=== PATIENT | female | born 1935 | race Caucasian/White ===

== ENCOUNTER 2019-07-15 12:35 | Outpatient (CLI) | payer MEDICARE, SELFPAY ==
--- NOTE | 2019-07-15 13:08 | MR_ITS ---
WS: [id number] MRI PELVIS AND RIGHT HIP without CONTRAST. COMPARISON: None Multiplanar, multisequence imaging is performed without contrast. Moderate narrowing of the RIGHT hip joint. Mild osteophytic ridging. Increased edema in the far later al acetabulum. There is also small amount of joint fluid. No fractures. There is increased signal ove r the greater trochanters. There is linear signal through the lateral labrum highly suspicious for a tear. This is along the sup erior lateral labrum. Cyst associated with the LEFT kidney measures 4.2 x 4.7 cm. Sigmoid diverticulosis. MR/MR hip RT wo con* [id number] IMPRESSION: 1. Mild osteoarthritis at the RIGHT hip joint with changes of an superior late ral labral tear. 2. Mild bilateral trochanteric bursitis.
== END 2019-07-15 12:36 | disposition home or self-care (01) ==
LOC: RADWPI 12:42
PROVIDERS: Family Provider Nurse Practitioner Family; PCP Nurse Practitioner Family; Visit Provider Nurse Practitioner Family
DX: R26.2 Difficulty in walking, not elsewhere classified (principal); M25.551 Pain in right hip; R10.31 Right lower quadrant pain; N28.1 Cyst of kidney, acquired; K57.30 Diverticulosis of large intestine without perforation or abscess without bleeding; M16.11 Unilateral primary osteoarthritis, right hip; M70.61 Trochanteric bursitis, right hip
CPT/HCPCS: 73721

== ENCOUNTER → 2019-08-05 10:42 | Outpatient (BNVA) | payer MEDICARE, SELFPAY | PROVIDERS: Family Provider Nurse Practitioner Family; PCP Nurse Practitioner Family; Referring Provider Nurse Practitioner Family; Visit Provider Orthopaedic Surgery | DX: M25.551 Pain in right hip (principal); M16.11 Unilateral primary osteoarthritis, right hip | CPT/HCPCS: 73502 ==

== ENCOUNTER → 2019-08-11 09:31 | Outpatient (BNVA) | payer MEDICARE, SELFPAY | PROVIDERS: Family Provider Nurse Practitioner Family; PCP Nurse Practitioner Family; Referring Provider Orthopaedic Surgery; Visit Provider Anesthesiology Pain Medicine | DX: M25.551 Pain in right hip (principal) | CPT/HCPCS: 99203; 99204 ==

== ENCOUNTER → 2019-08-19 13:35 | Outpatient (BNVA) | payer MEDICARE, SELFPAY | PROVIDERS: Family Provider Nurse Practitioner Family; PCP Nurse Practitioner Family; Visit Provider Anesthesiology Pain Medicine | DX: G89.29 Other chronic pain (principal); M25.551 Pain in right hip | CPT/HCPCS: 20610; 77002; 77003; J1030; J2001; J3490 ==

== ENCOUNTER → 2019-09-03 08:36 | Outpatient (BNVA) | payer MEDICARE, SELFPAY | PROVIDERS: Family Provider Nurse Practitioner Family; PCP Nurse Practitioner Family; Visit Provider Anesthesiology Pain Medicine | DX: M16.11 Unilateral primary osteoarthritis, right hip (principal); M70.61 Trochanteric bursitis, right hip; Y93.9 Activity, unspecified | CPT/HCPCS: 99212; 99213 ==

== ENCOUNTER 2020-01-07 12:54 | Inpatient (IN) | payer MEDICARE, SELFPAY ==
[2020-01-07] VITALS (9 sets, daily range): BP systolic 118–171; BP diastolic 63–89; PULSE 61–76; RESP 17–27; TEMP 37.4–37.7; O2SAT 92–97; BMI 27.4
--- NOTE | 2020-01-07 13:20 | ECG_ITS ---
[facility] Test Date: 2020-01-07 Pat Name: Vivian Osorio Department: Room: Gender: Female Campus Administrator: : [id number] Requested By: Francesco Marshall Order Number: [id number] Reading MD: LAZARUS BOGGS Measurements Intervals [place] Rate: 69 P: 75 MA: 189 QRS: -40 QRSD: 90 T: 17 QT: 401 QTc: 432 Interpretive Statements SINUS RHYTHM WITH OCCASIONAL SUPRAVENTRICULAR PREMATURE COMPLEXES MARKED LEFT AXIS DEVIATION [QRS AXIS < -30] POSSIBLE RIGHT VENTRICULAR CONDUCTION DELAY [RSR (QR) IN V1/V2] MODERATE ST DEPRESSION [0.05+ mV ST DEPRESSION] No previous ECG available for comparison Electronically Signed On 01-08-2020 15:22:48 [address] CONSULTANT by LAZARUS BOGGS [email or web address]
--- NOTE | 2020-01-07 14:07 | PC.NURSE ---
Pt in WR. Given warm blanket for comfort, no needs at this time.
[2020-01-07 14:35] LABS: Nucleated Red Blood Cells % 0 %
[2020-01-07 14:43] LABS: Basophils % 0.5 %; Eosinophils % 0.2 %; Hematocrit 43.4 % (37.0-47.0); Lymphocytes # 0.7 10^3/uL (0.8-4.8); Lymphocytes % 15.8 %; Mean Corpuscular HGB Conc 32.3 g/dL (30.0-36.0); Mean Corpuscular Hemoglobin 28.6 pg (28.0-34.0); Mean Corpuscular Volume 88.8 fL (81-99); Monocytes # 0.3 10^3/uL (0.2-0.9); Monocytes % 7.2 %; Neutrophils # 3.35 10^3/uL (1.8-7.7); Neutrophils % 75.8 %; Platelet Count 145 10^3/cmm (130-400); Red Blood Count 4.89 10^6/uL (4.1-5.3); Red Cell Distribution Width 14.4 % (12.1-15.1); White Blood Count 4.4 10^3/uL (4.0-10.0)
[2020-01-07 15:18] LABS: Slide Review Slide Review Perform
--- NOTE | 2020-01-07 16:13 | PC.NURSE ---
Pt was moved to VF d/t pt falling asleep in the wheelchair. Pt was able to transfer herself to a recliner. Resting with pull cord in reach.
--- NOTE | 2020-01-07 16:28 | PC.NURSE ---
Pt placed in room 12 and placed on monitor and 2LNC.
--- NOTE | 2020-01-07 16:39 | CTR_ITS ---
PROCEDURE INFORMATION: Exam: CT Angiography Chest With Contrast Exam date and time: 01/07/2020 6:41 PM Age: 84 years old Clinical indication: Shortness of breath; Additional info: Dyspnea TECHNIQUE: Imaging protocol: Computed tomographic angiography of the chest with intravenous contrast. 3D rendering (Not supervised by radiologist): MIP and/or 3D reconstructed images were created by the technologist. Radiation optimization: All CT scans at this facility use at least one of these dose optimization techniques: automated exposure control; mA and/or kV adjustment per patient size (includes targeted exams where dose is matched to clinical indication); or iterative reconstruction. Contrast material: VISI 320; Contrast volume: 64 ml; Contrast route: INTRAVENOUS (IV); COMPARISON: CR XR chest 1V portable [id number] 01/07/2020 5:17 PM RADIATION DOSE METRICS: Total DLP (mGy-cm): 598.97 FINDINGS: Pulmonary arteries: No visible evidence of pulmonary embolism/pulmonary arterial thrombus. Aorta: Minimal fusiform aneurysmal dilatation of the ascending thoracic aorta at 41 mm. No intimal flap or dissection. Mild arterial sclerotic disease. Lungs: Rare focus of patchy ground-glass interstitial lung disease which could reflect active interstitial pneumonitis. Minimal dependent atelectasis in the right lung base. Pleural space: Unremarkable. No pneumothorax. No pleural effusion. Heart: Coronary artery disease. Cardiomegaly. Left ventricular prominence. No visible pericardial effusion. Mediastinal space: Moderate size hiatal hernia. Patulous esophagus with the potential for achalasia. Lymph nodes: No visible evidence of active mediastinal or hilar lymphadenopathy. Liver: Diffuse fatty infiltration liver. Gallbladder and bile ducts: Status post cholecystectomy. Bones/joints: Age-appropriate degenerative disease of the spine. No visible acute osseous abnormality. Mild scoliotic curvature of the spine. Soft tissues: Unremarkable. Other findings: Motion artifact. CT/CT angio chest PE protcl [id number] IMPRESSION: 1. No visible evidence of pulmonary embolism/pulmonary arterial thrombus. 2. Minimal fusiform aneurysmal dilatation of the ascending thoracic aorta without intimal flap or dissection. 3. Rare focus of patchy ground-glass interstitial lung disease which could reflect low-grade active interstitial pneumonitis. 4. Coronary artery disease. 5. Cardiomegaly. 6. Other nonurgent, nonemergent, chronic, and age related findings as detailed in text above. Radiation Dose CTDIVOL = (mGy): DLP = 598.97 (mGy-cm)
--- NOTE | 2020-01-07 16:52 | W.ED.WEAKNES ---
Documented by User: Francesco Ibarra DO 01/08/20 06:32 HPI - Weakness General: Chief complaint: Extremity Problem,Nontraumatic Stated complaint: WEAKNESS / LEG CRAMPS Time Seen by Provider: 01/07/20 16:24 History of Present Illness: HPI Narrative: 84 yo female present with complaints of not feeling well. She is very vaugue as to her symtpoms. SHe does seem somewhat dyspnic in conversation. In trieage she had sat as low as 88% on room air. Oxygen turned off she desats to the low 90s upper 80s while lying in bed. She has had some nausea no vomiting denies diarrhea generalized weakness myalgia and flulike symptoms as well. MD Complaint: generalized weakness Associated symptoms: Denies chest pain, chills, melena, dysuria, fever(s), nausea or vomiting Review of Systems Const: Denies: fever(s), chills, body aches, change in appetite, fatigue or malaise ENMT: Denies: throat pain, ear or mastoid pain, nasal discharge or nasal congestion Card: Denies: chest pain, edema, dyspnea on exertion or orthopnea Resp: Denies: dyspnea, productive cough or non-productive cough GI: Denies: abdominal pain, nausea, vomiting, hematemesis, coffee ground emesis, diarrhea, constipation, bloating, hematochezia or melena : Denies: flank pain, difficulty voiding, dysuria, urinary frequency or urinary urgency Skin/Breast: Denies: rash or pruritus PFSH ED PFSH: Medical History (Updated 01/08/20 @ 06:32 by Francesco Ibarra DO) Chronic right hip pain Dementia Depression Hip osteoarthritis Hypertension Hypothyroidism Opioid contract exists RLS (restless legs syndrome) Vitamin D deficiency Surgical History (Updated 01/08/20 @ 00:23 by Elma Reid MD) History of hysterectomy Family History Other Cancer Diabetes Hypertension Social History Smoking and tobacco status: never smoked Alcohol intake: never Physical Exam Const: COMMON NORMALS: no acute distress GENERAL APPEARANCE: cooperative and comfortable HENMT: COMMON NORMALS: normocephalic, atraumatic and hearing grossly normal bilaterally HEAD & SCALP: normocephalic and atraumatic Neck/C-Spine: COMMON NORMALS: no JVD Resp: AUSCULTATION: rhonchi and wheezes Cardio: COMMON NORMALS: no JVD, regular rate, regular rhythm and No murmurs present (Cardio) RATE: regular rate RHYTHM: regular rhythm GI: COMMON NORMALS: Soft to palpation and No hepatosplenomegaly present AUSCULTATION: Yes normoactive bowel sounds PALPATION: Yes Soft to palpation, No Tenderness to palpation present (GI), No Guarding due to palpation present (GI) and Yes No hepatosplenomegaly present Extremity: COMMON NORMALS: normal to inspection, capillary refill normal, no clubbing, cyanosis or edema, no calf tenderness and no pedal edema Skin: COMMON NORMALS: no rashes or lesions noted GENERAL SKIN EXAM: no rashes or lesions noted Course Vital Signs: Vital signs: Vital Signs Temperature 97.9 F 01/08/20 04:00 Pulse Rate 52 L 01/08/20 04:00 Respiratory Rate 17 01/08/20 04:00 Blood Pressure 133/63 01/08/20 04:00 Pulse Oximetry 94 01/08/20 04:00 MDM - Weakness MDM Narrative: Medical decision making narrative: Turned over to Dr. Wheat at change of shift please see her notes for final diagnosis and disposition Lab Data: Labs: Lab Results 01/07/20 01/07/20 01/07/20 Range/Units 13:15 15:45 15:45 WBC 4.4 (4.0-10.0) 10^3/ uL RBC 4.89 (4.1-5.3) 10^6/u L Hgb 14.0 (11.5-15.3) g/dL Hct 43.4 (37.0-47.0) % MCV 88.8 (81-99) fL MCH 28.6 (28.0-34.0) pg MCHC 32.3 (30.0-36.0) g/dL RDW 14.4 (12.1-15.1) % Plt Count 145 (130-400) 10^3/c mm MPV 13.0 H (7.4-10.4) fL Neut % (Auto) 75.8 % Lymph % (Auto) 15.8 % [place] % (Auto) 7.2 % Eos % (Auto) 0.2 % Baso % (Auto) 0.5 % Neut # (Auto) 3.35 (1.8-7.7) 10^3/u L Lymph # (Auto) 0.7 L (0.8-4.8) 10^3/u L [place] # (Auto) 0.3 (0.2-0.9) 10^3/u L Eos # (Auto) 0.0 (0.0-0.8) 10^3/u L Baso # (Auto) 0.0 (0.0-0.1) 10^3/u L Nucleated RBC % (a uto) 0 % Nucleated RBCs # 0.0 /100WBC ESR 44 H (0-15) mm/hr D-Dimer (0-0.59) ug/mIFE U Sodium 135 L (136-145) mmol/L Potassium 3.7 (3.5-5.1) mmol/L Chloride 97 L (98-107) mmol/L Carbon Dioxide 23 (22-29) mmol/L Anion Gap 18.7 (5-19) BUN 39 H (8-23) mg/dL Creatinine 1.3 H (0.5-0.9) mg/dL GFR Calculation Not Reportable Glucose 131 H (65-115) mg/dL Calculated Osmolal ity 291 (285-295) mOsm/k g Calcium 8.9 (8.5-10.5) mg/dL Magnesium 2.0 (1.7-2.3) mg/dL Total Bilirubin 0.3 (0.15-1.2) mg/dL AST 30 (0-32) U/L ALT 21 (0-33) U/L Alkaline Phosphata se 64 (35-105) IU/L C-Reactive Protein (0.0-4.9) mg/L Total Protein 7.4 (6.6-8.7) g/dL Albumin 4.2 (3.5-5.2) g/dL Globulin 3.2 (1.3-4.6) g/dL Procalcitonin (0-0.5) ng/mL SARS-CoV-2 Ag (Rap id) (Negative) 01/07/20 01/07/20 01/07/20 Range/Units 15:45 15:45 17:30 WBC (4.0-10.0) 10^3/ uL RBC (4.1-5.3) 10^6/u L Hgb (11.5-15.3) g/dL Hct (37.0-47.0) % MCV (81-99) fL MCH (28.0-34.0) pg MCHC (30.0-36.0) g/dL RDW (12.1-15.1) % Plt Count (130-400) 10^3/c mm MPV (7.4-10.4) fL Neut % (Auto) % Lymph % (Auto) % [place] % (Auto) % Eos % (Auto) % Baso % (Auto) % Neut # (Auto) (1.8-7.7) 10^3/u L Lymph # (Auto) (0.8-4.8) 10^3/u L [place] # (Auto) (0.2-0.9) 10^3/u L Eos # (Auto) (0.0-0.8) 10^3/u L Baso # (Auto) (0.0-0.1) 10^3/u L Nucleated RBC % (a uto) % Nucleated RBCs # /100WBC ESR (0-15) mm/hr D-Dimer 0.95 H (0-0.59) ug/mIFE U Sodium (136-145) mmol/L Potassium (3.5-5.1) mmol/L Chloride (98-107) mmol/L Carbon Dioxide (22-29) mmol/L Anion Gap (5-19) BUN (8-23) mg/dL Creatinine (0.5-0.9) mg/dL GFR Calculation Glucose (65-115) mg/dL Calculated Osmolal ity (285-295) mOsm/k g Calcium (8.5-10.5) mg/dL Magnesium (1.7-2.3) mg/dL Total Bilirubin (0.15-1.2) mg/dL AST (0-32) U/L ALT (0-33) U/L Alkaline Phosphata se (35-105) IU/L C-Reactive Protein 52.0 H (0.0-4.9) mg/L Total Protein (6.6-8.7) g/dL Albumin (3.5-5.2) g/dL Globulin (1.3-4.6) g/dL Procalcitonin 0.15 (0-0.5) ng/mL SARS-CoV-2 Ag (Rap id) Positive H (Negative) Discharge Plan Discharge Patient Disposition: Admitted As Inpatient Admit Provider: Elma Reid Clinical Impression: Pneumonia due to 2019-nCoV Condition: Stable Coding Level of Care Code ED Lead Shop Operator for Chg Fwd Exam Comprehensive Documented by User: Belen Wheat MD 01/08/20 05:22 HPI - Weakness General: Chief complaint: Extremity Problem,Nontraumatic Stated complaint: WEAKNESS / LEG CRAMPS Time Seen by Provider: 01/07/20 16:24 PFSH ED PFSH: Medical History (Updated 01/08/20 @ 06:32 by Francesco Ibarra DO) Chronic right hip pain Dementia Depression Hip osteoarthritis Hypertension Hypothyroidism Opioid contract exists RLS (restless legs syndrome) Vitamin D deficiency Surgical History (Updated 01/08/20 @ 00:23 by Elma Reid MD) History of hysterectomy Family History Other Cancer Diabetes Hypertension Social History Smoking and tobacco status: never smoked Alcohol intake: never Course ED course: I assumed care of this patient at shift change. She remained fairly stable while in the ED. CT did not show any PEs. She does have Covid pneumonia. She is requiring oxygen. I spoke to her daughter by phone. Her daughter lives in the [place] area. She thinks the patient started having symptoms over the weekend but she is not sure. The patient has dementia and is not able to tell me anymore. Her daughter does not feel that she can manage at home because of her dementia. I will admit her to the hospital for further management. She got remdesivir and Decadron in the ER. Vital Signs: Vital signs: Vital Signs Temperature 97.9 F 01/08/20 04:00 Pulse Rate 52 L 01/08/20 04:00 Respiratory Rate 17 01/08/20 04:00 Blood Pressure 133/63 01/08/20 04:00 Pulse Oximetry 94 01/08/20 04:00 MDM - Weakness Lab Data: Labs: Lab Results 01/07/20 01/07/20 01/07/20 Range/Units 13:15 15:45 15:45 WBC 4.4 (4.0-10.0) 10^3/ uL RBC 4.89 (4.1-5.3) 10^6/u L Hgb 14.0 (11.5-15.3) g/dL Hct 43.4 (37.0-47.0) % MCV 88.8 (81-99) fL MCH 28.6 (28.0-34.0) pg MCHC 32.3 (30.0-36.0) g/dL RDW 14.4 (12.1-15.1) % Plt Count 145 (130-400) 10^3/c mm MPV 13.0 H (7.4-10.4) fL Neut % (Auto) 75.8 % Lymph % (Auto) 15.8 % [place] % (Auto) 7.2 % Eos % (Auto) 0.2 % Baso % (Auto) 0.5 % Neut # (Auto) 3.35 (1.8-7.7) 10^3/u L Lymph # (Auto) 0.7 L (0.8-4.8) 10^3/u L [place] # (Auto) 0.3 (0.2-0.9) 10^3/u L Eos # (Auto) 0.0 (0.0-0.8) 10^3/u L Baso # (Auto) 0.0 (0.0-0.1) 10^3/u L Nucleated RBC % (a uto) 0 % Nucleated RBCs # 0.0 /100WBC ESR 44 H (0-15) mm/hr D-Dimer (0-0.59) ug/mIFE U Sodium 135 L (136-145) mmol/L Potassium 3.7 (3.5-5.1) mmol/L Chloride 97 L (98-107) mmol/L Carbon Dioxide 23 (22-29) mmol/L Anion Gap 18.7 (5-19) BUN 39 H (8-23) mg/dL Creatinine 1.3 H (0.5-0.9) mg/dL GFR Calculation Not Reportable Glucose 131 H (65-115) mg/dL Calculated Osmolal ity 291 (285-295) mOsm/k g Calcium 8.9 (8.5-10.5) mg/dL Magnesium 2.0 (1.7-2.3) mg/dL Total Bilirubin 0.3 (0.15-1.2) mg/dL AST 30 (0-32) U/L ALT 21 (0-33) U/L Alkaline Phosphata se 64 (35-105) IU/L C-Reactive Protein (0.0-4.9) mg/L Total Protein 7.4 (6.6-8.7) g/dL Albumin 4.2 (3.5-5.2) g/dL Globulin 3.2 (1.3-4.6) g/dL Procalcitonin (0-0.5) ng/mL SARS-CoV-2 Ag (Rap id) (Negative) 01/07/20 01/07/20 01/07/20 Range/Units 15:45 15:45 17:30 WBC (4.0-10.0) 10^3/ uL RBC (4.1-5.3) 10^6/u L Hgb (11.5-15.3) g/dL Hct (37.0-47.0) % MCV (81-99) fL MCH (28.0-34.0) pg MCHC (30.0-36.0) g/dL RDW (12.1-15.1) % Plt Count (130-400) 10^3/c mm MPV (7.4-10.4) fL Neut % (Auto) % Lymph % (Auto) % [place] % (Auto) % Eos % (Auto) % Baso % (Auto) % Neut # (Auto) (1.8-7.7) 10^3/u L Lymph # (Auto) (0.8-4.8) 10^3/u L [place] # (Auto) (0.2-0.9) 10^3/u L Eos # (Auto) (0.0-0.8) 10^3/u L Baso # (Auto) (0.0-0.1) 10^3/u L Nucleated RBC % (a uto) % Nucleated RBCs # /100WBC ESR (0-15) mm/hr D-Dimer 0.95 H (0-0.59) ug/mIFE U Sodium (136-145) mmol/L Potassium (3.5-5.1) mmol/L Chloride (98-107) mmol/L Carbon Dioxide (22-29) mmol/L Anion Gap (5-19) BUN (8-23) mg/dL Creatinine (0.5-0.9) mg/dL GFR Calculation Glucose (65-115) mg/dL Calculated Osmolal ity (285-295) mOsm/k g Calcium (8.5-10.5) mg/dL Magnesium (1.7-2.3) mg/dL Total Bilirubin (0.15-1.2) mg/dL AST (0-32) U/L ALT (0-33) U/L Alkaline Phosphata se (35-105) IU/L C-Reactive Protein 52.0 H (0.0-4.9) mg/L Total Protein (6.6-8.7) g/dL Albumin (3.5-5.2) g/dL Globulin (1.3-4.6) g/dL Procalcitonin 0.15 (0-0.5) ng/mL SARS-CoV-2 Ag (Rap id) Positive H (Negative) Discharge Plan Discharge Patient Disposition: Admitted As Inpatient Admit Provider: Elma Reid Clinical Impression: Pneumonia due to 2019-nCoV Condition: Stable Coding Level of Care Code ED Lead Shop Operator for g Fwd Exam Comprehensive
[2020-01-07 16:55] LABS: Erythrocyte Sedimentation Rate 44 mm/hr (0-15)
[2020-01-07 16:59] LABS: D Dimer 0.95 ug/mIFEU (0-0.59)
--- NOTE | 2020-01-07 17:10 | XRR_ITS ---
PROCEDURE INFORMATION: Exam: XR Chest, 1 View Exam date and time: 01/07/2020 5:12 PM Age: 84 years old Clinical indication: Other: Weakness; Additional info: Dyspnea/cough TECHNIQUE: Imaging protocol: XR of the chest Views: 1 view. COMPARISON: No relevant prior studies available. FINDINGS: Lungs: Unremarkable. No consolidation. Pleural space: Unremarkable. No pleural effusion. No pneumothorax. Heart/Mediastinum: Unremarkable. No cardiomegaly. Bones/joints: Unremarkable. XR/XR chest 1V portable [id number] IMPRESSION: No acute findings.
[2020-01-07 17:30] LABS: Procalcitonin 0.15 ng/mL (0-0.5)
[2020-01-07 17:54] LABS: Alanine Aminotransferase 21 U/L (0-33); Albumin Level 4.2 g/dL (3.5-5.2); Alkaline Phosphatase 64 IU/L (35-105); Anion Gap 18.7 (5-19); Aspartate Amino Transferase 30 U/L (0-32); Blood Urea Nitrogen 39 mg/dL (8-23); Calcium 8.9 mg/dL (8.5-10.5); Carbon Dioxide 23 mmol/L (22-29); Chloride 97 mmol/L (98-107); Globulin 3.2 g/dL (1.3-4.6); Glucose 131 mg/dL (65-115); Osmolality Calculated 291 mOsm/kg (285-295); Potassium 3.7 mmol/L (3.5-5.1); Sodium 135 mmol/L (136-145); Total Bilirubin 0.3 mg/dL (0.15-1.2); Total Protein 7.4 g/dL (6.6-8.7)
[2020-01-07 18:08] LABS: SARS Covid-2 Antigen Positive (Negative)
[2020-01-07] MEDS: iodixanol 320 mg/mL 100mL Btl IV (19:21)
[2020-01-07] MEDS: ropinirole 0.25 mg Tablet PO (20:43)
[2020-01-07] MEDS: dexamethasone 4 mg/mL INJ 6 MG IVP (21:56)
[2020-01-08] VITALS (10 sets, daily range): BP systolic 115–145; BP diastolic 63–74; PULSE 51–70; RESP 17–18; TEMP 36.5–37.1; O2SAT 92–96
--- NOTE | 2020-01-08 00:20 | PM.HP ---
Providers/Chief Complaint Admitting Physician: Elma Reid MD Primary Care Provider: Esem Vo Chief Complaint: WEAKNESS / LEG CRAMPS History of Present Illness Vivian Osorio is a 84 year old female with PMH hypothyroidism and HTN who presnted to the ER earlier today with co leg cramps, fever and generalized feeling of being unwell. She was noted to be tachypneic and had a reportedly new 02 requirement at 2lpm with RA saturation in the mid 80s. ROS dry cough+. Denies chest pain, dypnea or palpitaions. Diagnostics notable for covid antigen positive, CTA without PE but evidence of mild GGOs which may represent viral pneumonitis. Procal negative, no gross consolidation. Review of Systems General: Reports: 10 or more systems reviewed and unremarkable except in HPI and below Const: Reports: fever(s), chills and body aches Eyes: Denies: change in vision, blurry vision or photophobia ENMT: Reports: hoarseness; Denies: throat pain, enlarged tonsils, odynophagia or nasal congestion Card: Denies: chest pain, palpitations, irregular heart rhythm, edema, swelling of feet/ankles, lightheadedness, pre-syncope, dyspnea on exertion or orthopnea Resp: Denies: dyspnea, productive cough, non-productive cough, wheezing, stridor, pain on inspiration, change in phlegm color, hemoptysis or chest congestion GI: Denies: abdominal pain, nausea, vomiting, hematemesis, coffee ground emesis, dysphagia, heartburn, diarrhea, constipation, GI cramping, change in stool character, hematochezia or melena : Denies: flank pain, difficulty voiding, dysuria, urinary frequency, urinary urgency, urinary hesitancy or hematuria Musc: Denies: neck pain, back pain, extremity pain, joint swelling, joint warmth or deformity Neuro: Denies: headache(s), numbness in extremities, weakness in extremities, sensory changes, difficulty walking, frequent falls, dizziness, vertigo, behavioral changes, Slurred speech present or seizure-like activity Psych: Denies: anxiety, depression, suicidal ideation or homicidal ideation Endo: Denies: polyuria, polydipsia, tired all the time, cold intolerance or hot flashes Prudencio/Lymph: Denies: easy bruising or easy bleeding Medications/Allergies Home Medications Medication Instructions Recorded Confirmed Last Taken Type cholecalciferol (vitamin D3) 25 25 mcg PO DAILY 08/05/19 01/07/20 Unknown History mcg (1,000 unit) capsule gabapentin 600 mg tablet 600 mg PO DAILY 08/05/19 01/07/20 Unknown History hydrochlorothiazide 12.5 mg tablet 12.5 mg PO DAILY 08/05/19 01/07/20 Unknown History levothyroxine 25 mcg capsule 25 mcg PO DAILY 08/05/19 01/07/20 Unknown History nystatin 100,000 unit/gram topical 1 applic TOPICAL BID 08/05/19 01/07/20 Unknown History cream omeprazole 20 mg capsule,delayed 20 mg PO DAILY 08/05/19 01/07/20 Unknown History release lisinopril 10 mg PO DAILY 01/07/20 01/07/20 Unknown History nebivolol [Bystolic] 5 mg PO DAILY 01/07/20 01/07/20 Unknown History Allergies Allergy/AdvReac Type Severity Reaction Status Date / Time naproxen [From Naprosyn] Allergy Severe ALGY-Swell Verified 09/03/19 09:25 Lip/Tongue/Throat PFSH Acute PFSH: Medical History (Updated 01/08/20 @ 00:24 by Elma Reid MD) Chronic right hip pain Dementia Depression Hip osteoarthritis Hypertension Hypothyroidism Opioid contract exists RLS (restless legs syndrome) Vitamin D deficiency Surgical History (Updated 01/08/20 @ 00:23 by Elma Reid MD) History of hysterectomy Family History Other Cancer Diabetes Hypertension Social History Smoking and tobacco status: never smoked Alcohol intake: never Vitals/I&O/Wt Last Vital Signs Temp 99.3 F 01/07/20 23:30 Pulse 61 01/07/20 23:30 Resp 24 H 01/07/20 23:30 BP 147/89 01/07/20 23:30 Pulse Ox 94 01/07/20 23:30 Weight last 48 hrs Weight 74.843 kg Physical Exam Const: COMMON NORMALS: no acute distress, average body habitus, patient oriented x3, alert and well nourished HENMT: COMMON NORMALS: normocephalic and atraumatic HEAD & SCALP: normocephalic and atraumatic Eye: COMMON NORMALS: Equal, round and reactive pupils present, EOMs intact bilaterally, conjunctivae normal and no scleral icterus CONJUNCTIVA: Yes conjunctivae normal PUPIL: Yes Equal, round and reactive pupils present Neck/C-Spine: COMMON NORMALS: no JVD Resp: COMMON NORMALS: normal respiratory effort, No retractions, No use of accessory muscles, clear to auscultation bilaterally and percussion normal AUSCULTATION: clear to auscultation bilaterally PERCUSSION: percussion normal Cardio: COMMON NORMALS: no JVD, regular rate, regular rhythm, S1 normal heart sound present, S2 normal heart sound present, No gallops present (Cardio), No clicks present (Cardio), No murmurs present (Cardio), No rub (Cardio) and Peripheral pulses 2+ throughout RATE: regular rate RHYTHM: regular rhythm HEART SOUNDS: S1 normal heart sound present and S2 normal heart sound present PERIPHERAL PULSES: Peripheral pulses 2+ throughout GI: COMMON NORMALS: Normal to inspection, nondistended, normoactive bowel sounds present, Soft to palpation, non-tender, No hepatosplenomegaly present, no masses and no bruits PALPATION: Yes Soft to palpation and Yes No hepatosplenomegaly present Extremity: COMMON NORMALS: normal to inspection, full ROM, capillary refill normal, no joint enlargement, no clubbing, cyanosis or edema, no calf tenderness and no pedal edema Neuro: COMMON NORMALS: patient oriented x3, CN's II-XII intact bilaterally, moves all extremities, no focal motor deficits, no sensory deficits noted, deep tendon reflexes 2+ bilaterally and gait normal SENSORIUM/ORIENTATION: Yes alert Psych: COMMON NORMALS: mental status grossly normal, Normal thought process present, cooperative, normal affect, speech normal, activity/motor behavior normal, denies hallucinations, denies homicidal ideation and denies suicidal ideation SPEECH: Yes normal speech THOUGHT PROCESS: Normal thought process present Skin: COMMON NORMALS: no rashes or lesions noted, no wounds, turgor normal, no jaundice, no petechiae and no mottling GENERAL SKIN EXAM: no rashes or lesions noted and turgor normal Data : 01/07/20 13:15 01/07/20 15:45 A&P Assessment and plan (1) Pneumonia due to 2019-nCoV: Admit to med/surg CTA without PE, shows B/L GGOs likely related to pneumonitis Start Remdisivir, dexamethasone 6mg IVP q24h Vit C 500 BID, ZInc gluconate Procal negative, hold off on abx for now supplemental 02 to keep saturation >92% Check BNP, baseline troponin to r/o alternate etiologies, clinically appears to be euvolemic, no baseline echo available EKG without acute ST-T wave changes continue levothyroxine, HCTZ at home doing. Hold lisinopril given cr 1.3, unknown last baseline Dvt ppx: lovenox Full code Status: Acute Attestations Medical Necessity Statement*: >2midnight anticipated for management of COVID 19 pneumonia with hypoxic respiratory failure Coding Level of Care Code Acute Transformation Specialist for [facility] Fwd Diagnoses Pneumonia due to 2018-nCoV U07.1; J12.89
[2020-01-08] MEDS: enoxaparin 40 mg/0.4 mL Syringe SUBCUT (00:49)
[2020-01-08 01:42] LABS: D Dimer 1.13 ug/mIFEU (0-0.59)
[2020-01-08 01:45] LABS: Alanine Aminotransferase 21 U/L (0-33); Albumin Level 3.7 g/dL (3.5-5.2); Alkaline Phosphatase 57 IU/L (35-105); Anion Gap 16.3 (5-19); Aspartate Amino Transferase 32 U/L (0-32); Blood Urea Nitrogen 30 mg/dL (8-23); Calcium 8.7 mg/dL (8.5-10.5); Carbon Dioxide 24 mmol/L (22-29); Chloride 100 mmol/L (98-107); Globulin 3.1 g/dL (1.3-4.6); Glucose 152 mg/dL (65-115); Osmolality Calculated 293 mOsm/kg (285-295); Potassium 3.3 mmol/L (3.5-5.1); Sodium 137 mmol/L (136-145); Total Bilirubin 0.3 mg/dL (0.15-1.2); Total Protein 6.8 g/dL (6.6-8.7)
[2020-01-08 01:48] LABS: Troponin T (5th) Once 34 ng/L (0-10)
[2020-01-08 01:57] LABS: C Reactive Protein 45.5 mg/L (0.0-4.9); Lactate Dehydrogenase 223 U/L (135-214); NT Pro B Type Natriuretic Pept 583 pg/mL (0-450)
[2020-01-08] MEDS: ascorbic acid 500 mg Tablet PO ×2 (07:44→17:31)
[2020-01-08] MEDS: gabapentin 300 mg Capsule 600 MG PO (07:45)
[2020-01-08] MEDS: levothyroxine 25 mcg Tablet PO (07:46)
[2020-01-08] MEDS: hydroCHLOROthiazide 25 mg Tablet 12.5 MG PO (07:46)
[2020-01-08] MEDS: zinc gluconate 50 mg Tablet PO (07:46)
[2020-01-08] MEDS: pantoprazole DR 40 mg Tablet PO (07:47)
[2020-01-08] MEDS: nystatin cream 30 gm 1 APPLIC TOPICAL ×2 (09:06→17:20)
[2020-01-08 09:25] LABS: Glucose Point of Care 136 mg/dL (70-110)
[2020-01-08] MEDS: potassium chloride ER 20 mEq Tablet PO (09:56)
[2020-01-08 12:57] LABS: Glucose Point of Care 126 mg/dL (70-110)
--- NOTE | 2020-01-08 13:23 | P.PN_ITS ---
Subjective Subjective: Interval history: This morning patient is on 2 L nasal cannula, alert oriented x2, having episodes of some confusion according to nursing staff, answers most questions appropriately, still feeling fatigued, short of breath, but overall doing better Vitals/I&O/Wt Last Vital Signs Temp 98.7 F 01/08/20 11:31 Pulse 51 L 01/08/20 11:31 Resp 18 01/08/20 11:31 BP 139/72 01/08/20 11:31 Pulse Ox 93 01/08/20 11:31 01/07/20 01/08/20 01/08/20 22:59 06:59 14:59 Intake Total 360 / 360 Output Total 650 / 650 Balance -650 / -650 360 / 360 Weight last 48 hrs Weight 74.843 kg Physical Exam Const: COMMON NORMALS: no acute distress ORIENTATION/CONSCIOUSNESS: Yes awake, Yes oriented to person and Yes oriented to place; not oriented to time HENMT: COMMON NORMALS: normocephalic HEAD & SCALP: normocephalic Neck/C-Spine: COMMON NORMALS: no JVD Resp: COMMON NORMALS: normal respiratory effort, No retractions, No use of accessory muscles and clear to auscultation bilaterally AUSCULTATION: clear to auscultation bilaterally Cardio: COMMON NORMALS: no JVD, regular rate, regular rhythm, S1 normal heart sound present and S2 normal heart sound present RATE: regular rate RHYTHM: regular rhythm HEART SOUNDS: S1 normal heart sound present and S2 normal heart sound present GI: COMMON NORMALS: Normal to inspection, nondistended, normoactive bowel sounds present, Soft to palpation, non-tender, No hepatosplenomegaly present, no masses and no bruits PALPATION: Yes Soft to palpation and Yes No hepatosplenomegaly present Extremity: COMMON NORMALS: capillary refill normal, no clubbing, cyanosis or edema, no calf tenderness and no pedal edema Neuro: SENSORIUM/ORIENTATION: Yes oriented to person, Yes oriented to place and No oriented to time Psych: COMMON NORMALS: mental status grossly normal Data : 01/07/20 13:15 01/08/20 01:16 A&P Assessment and plan (1) Pneumonia due to 2019-nCoV: Admit to med/surg CTA without PE, shows B/L GGOs likely related to pneumonitis Remdisivir, dexamethasone 6mg IVP q24h Vit C 500 BID, ZInc gluconate Procal negative, hold off on abx for now supplemental 02 to keep saturation >92% BNP 583, cardiac echocardiogram ordered EKG without acute ST-T wave changes continue levothyroxine, HCTZ at home doing. Hold lisinopril given cr 1.0, unknown last baseline Dvt ppx: lovenox Full code Status: Acute Additional A&P Information Plan for today, wean oxygen as tolerated, continue aggressive pulmonary toilet, up out of bed, Attestations Medical Necessity Statement*: Patient requires hospitalization due to pn eumonia secondary to COVID-19 Coding Level of Care Code Acute Head Of Integrated Media for [facility] Fwd Diagnoses Pneumonia due to 2019-nCoV U07.1; J12.89
[2020-01-08] MEDS: dexamethasone 4 mg/mL INJ 6 MG IVP (15:29)
[2020-01-08] MEDS: acetaminophen 325 mg Tablet 650 MG PO (15:36)
[2020-01-08 17:14] LABS: Glucose Point of Care 119 mg/dL (70-110)
[2020-01-08 20:39] LABS: Glucose Point of Care 139 mg/dL (70-110)
[2020-01-09] VITALS (9 sets, daily range): BP systolic 98–167; BP diastolic 62–81; PULSE 52–68; RESP 16–18; TEMP 35.6–37.2; O2SAT 92–96
[2020-01-09] MEDS: enoxaparin 40 mg/0.4 mL Syringe SUBCUT (01:16)
[2020-01-09 06:05] LABS: Hematocrit 45.7 % (37.0-47.0); Hemoglobin 14.7 g/dL (11.5-15.3); Lymphocytes % 15.9 %; Mean Corpuscular HGB Conc 32.2 g/dL (30.0-36.0); Mean Corpuscular Hemoglobin 28.7 pg (28.0-34.0); Mean Corpuscular Volume 89.3 fL (81-99); Mean Platelet Volume 13.2 fL (7.4-10.4); Monocytes # 0.5 10^3/uL (0.2-0.9); Monocytes % 8.1 %; Neutrophils # 4.83 10^3/uL (1.8-7.7); Neutrophils % 75.4 %; Nucleated Red Blood Cells % 0 %; Platelet Count 163 10^3/cmm (130-400); Red Blood Count 5.12 10^6/uL (4.1-5.3); Red Cell Distribution Width 13.9 % (12.1-15.1); White Blood Count 6.4 10^3/uL (4.0-10.0)
--- NOTE | 2020-01-09 06:26 | NUR.SHIFT ---
Patient through out the night was restless, otherwise pleasant.
[2020-01-09 06:34] LABS: INR 1.07 (0.8-1.2)
[2020-01-09 06:36] LABS: D Dimer 0.87 ug/mIFEU (0-0.59)
[2020-01-09 06:44] LABS: Glucose Point of Care 127 mg/dL (70-110)
[2020-01-09 06:59] LABS: NT Pro B Type Natriuretic Pept 621 pg/mL (0-450); Procalcitonin 0.11 ng/mL (0-0.5)
--- NOTE | 2020-01-09 07:00 | XR_ITS ---
WS: [id number] PORTABLE CHEST HISTORY: sob COMPARISON: 01/07/2020 Mild pulmonary hyperexpansion. Changes of mild chronic emphysema. No pleural effusion or pneumothorax . Cardiac size: Moderately enlarged cardiac silhouette. Mediastinum/Aorta: Mild atherosclerosis aorta. Diffuse osteopenia. XR/XR chest 1V portable [id number] IMPRESSION: Chronic emphysema with no pneumonia.
[2020-01-09 07:11] LABS: Alanine Aminotransferase 27 U/L (0-33); Albumin Level 3.6 g/dL (3.5-5.2); Alkaline Phosphatase 55 IU/L (35-105); Anion Gap 19.4 (5-19); Aspartate Amino Transferase 41 U/L (0-32); Blood Urea Nitrogen 31 mg/dL (8-23); C Reactive Protein 32.5 mg/L (0.0-4.9); Calcium 9.1 mg/dL (8.5-10.5); Carbon Dioxide 22 mmol/L (22-29); Chloride 98 mmol/L (98-107); Globulin 3.1 g/dL (1.3-4.6); Glucose 137 mg/dL (65-115); Osmolality Calculated 291 mOsm/kg (285-295); Phosphorus 2.9 mg/dL (2.5-4.5); Potassium 3.4 mmol/L (3.5-5.1); Sodium 136 mmol/L (136-145); Total Bilirubin 0.3 mg/dL (0.15-1.2); Total Protein 6.7 g/dL (6.6-8.7)
[2020-01-09] MEDS: pantoprazole DR 40 mg Tablet PO (07:36)
[2020-01-09] MEDS: zinc gluconate 50 mg Tablet PO (07:36)
[2020-01-09] MEDS: gabapentin 300 mg Capsule 600 MG PO (07:36)
[2020-01-09] MEDS: hydroCHLOROthiazide 25 mg Tablet 12.5 MG PO (07:36)
[2020-01-09] MEDS: levothyroxine 25 mcg Tablet PO (07:36)
[2020-01-09] MEDS: nystatin cream 30 gm 1 APPLIC TOPICAL ×2 (07:37→17:04)
[2020-01-09] MEDS: ascorbic acid 500 mg Tablet PO ×2 (07:37→17:04)
[2020-01-09] MEDS: acetaminophen 325 mg Tablet 650 MG PO (10:45)
[2020-01-09 11:26] LABS: Glucose Point of Care 112 mg/dL (70-110)
[2020-01-09] MEDS: potassium chloride ER 20 mEq Tablet 40 MEQ PO (11:43)
--- NOTE | 2020-01-09 12:19 | P.PN_ITS ---
Subjective Subjective: Interval history: Patient is sitting up in bed this morning on 2 L, she was having episodes of confusion overnight according to nursing staff, is alert oriented x2 this morning, no fevers, no chills, no nausea, no vomiting, no lightheadedness, no dizziness Vitals/I&O/Wt Last Vital Signs Temp 98.6 F 01/09/20 12:00 Pulse 55 L 01/09/20 12:00 Resp 18 01/09/20 12:00 BP 98/62 01/09/20 12:00 Pulse Ox 93 01/09/20 12:00 01/08/20 01/09/20 01/09/20 22:59 06:59 14:59 Intake Total 120 / 480 120 / 600 240 / 240 Output Total 400 / 400 300 / 700 Balance -280 / 80 -180 / -100 240 / 240 Weight last 48 hrs Weight 74.843 kg Physical Exam Const: COMMON NORMALS: no acute distress and alert ORIENTATION/CONSCIOUSNESS: Yes awake, Yes oriented to person and Yes oriented to place; not oriented to time HENMT: COMMON NORMALS: normocephalic HEAD & SCALP: normocephalic Neck/C-Spine: COMMON NORMALS: no JVD Resp: COMMON NORMALS: normal respiratory effort, No retractions, No use of accessory muscles and clear to auscultation bilaterally AUSCULTATION: clear to auscultation bilaterally Cardio: COMMON NORMALS: no JVD, regular rate, regular rhythm, S1 normal heart sound present and S2 normal heart sound present RATE: regular rate RHYTHM: regular rhythm HEART SOUNDS: S1 normal heart sound present and S2 normal heart sound present GI: COMMON NORMALS: Normal to inspection, nondistended, normoactive bowel sounds present, Soft to palpation, non-tender, No hepatosplenomegaly present, no masses and no bruits PALPATION: Yes Soft to palpation and Yes No hepat osplenomegaly present Extremity: COMMON NORMALS: capillary refill normal, no clubbing, cyanosis or edema, no calf tenderness and no pedal edema Neuro: SENSORIUM/ORIENTATION: Yes alert, Yes oriented to person, Yes oriented to place and No oriented to time Psych: COMMON NORMALS: mental status grossly normal Data : 01/09/20 05:20 01/09/20 05:20 A&P Assessment and plan (1) Pneumonia due to 2019-nCoV: Admit to med/surg CTA without PE, shows B/L GGOs likely related to pneumonitis Remdisivir, dexamethasone 6mg IVP q24h Vit C 500 BID, ZInc gluconate Start on doxycycline today supplemental 02 to keep saturation >92% BNP 583, cardiac echocardiogram ordered EKG without acute ST-T wave changes continue levothyroxine, HCTZ at home doing. Hold lisinopril given cr 1.0, unknown last baseline Dvt ppx: lovenox Full code Status: Acute (2) Dementia: -Episodes of confusion, no episodes of agitation, no medications required, doing well with redirection Status: Acute Additional A&P Information Plan for today, wean oxygen as tolerated, continue aggressive pulmonary toilet, up out of bed, Attestations Medical Necessity Statement*: Patient requires hospitalization for pneumonia secondary COVID-19, episodes of confusion, forgetfulness likely related to dementia Coding Level of Care Code Acute Collections And Archives Director for [facility] Lien Diagnoses Pneumonia due to 2019-nCoV U07.1; J12.89 Dementia F03.90
[2020-01-09] MEDS: doxycycline 100 MG in sodium chloride 0.9% (plus) 100 ML IV (13:20)
--- NOTE | 2020-01-09 13:24 | USCV_ITS ---
Vivian Osorio Age: 84 Gender: F : 1935 Exam Date: 01/09/2020 10:11 Ordering Phys: Guillermo Mendes MD Technologist: Sharon Reid Exam Location: [facility] [place] Indication: SOB BP: 115 / 76 HR: 61 Rhythm: Sinus Technical Quality: Adequate MEASUREMENTS (Male / Female) Normal Values 2D ECHO LV Diastolic Diameter PLAX 4.4 cm 4.2 - 5.9 / 3.9 - 5.3 cm LV Systolic Diameter PLAX 2.9 cm LV Chamber Size 2.8 cm IVS Diastolic Thickness 1.2 cm 0.6 - 1.0 / 0.6 - 0.9 cm IVS Systolic Thickness 1.7 cm LVPW Diastolic Thickness 1.3 cm 0.6 - 1.0 / 0.6 - 0.9 cm LVPW Systolic Thickness 2.0 cm RV Chamber Size 3.6 cm LVOT Diameter 2.1 cm LV Ejection Fraction 2D Teich 64.4 % LV Ejection Fraction MOD 2C 70.7 % LV Ejection Fraction 2C AL 71.6 % LA Diameter 3.3 cm LA Width 2.9 cm LA Height 4.7 cm RA Width 3.5 cm RA Height 4.3 cm Aorta at Sinotubular Diameter 3.0 cm M-MODE LV Diastolic Diameter MM 4.7 cm 4.2 - 5.9 / 3.9 - 5.3 cm LV Systolic Diameter MM 3.3 cm LV Ejection Fraction MM Teich 57.4 % IVS Diastolic Thickness MM 1.2 cm 0.6 - 1.0 / 0.6 - 0.9 cm IVS Systolic Thickness MM 1.8 cm LVPW Diastolic Thickness MM 1.5 cm 0.6 - 1.0 / 0.6 - 0.9 cm LVPW Systolic Thickness MM 1.7 cm RV Diastolic Diameter MM 1.4 cm Aortic Annulus Diameter 3.8 cm LA Ao Ratio MM 0.9 MV E Point Septal Separation 0.4 cm DOPPLER AV Peak Velocity 165.0 cm/s LVOT Peak Velocity 74.0 cm/s AV Area Cont Eq vti 2.0 cm squared AV Area Cont Eq pk 1.5 cm squared MV Area PHT 3.1 cm squared Mitral E to A Ratio 1.0 MV E' Velocity 52.5 cm/s Mitral E to MV E' Ratio 7.3 Mitral E to LV E' Lateral Ratio 6.8 Mitral E to LV E' Septal Ratio 7.9 TR Peak Velocity 154.5 cm/s TR Peak Gradient 9.5 mmHg TR Mean Velocity 158.3 cm/s TR Mean Gradient 11.4 mmHg TR Velocity Time Integral 54.0 cm TV Peak E Velocity 90.0 cm/s Right Atrial Pressure 3.0 mmHg Pulmonary Artery Systolic Pressu 12.5 mmHg PV Peak Velocity 104.0 cm/s RV Acceleration Time 0.1 s RV Ejection Time 0.3 s RV AcT/ET 0.2 FINDINGS Left Ventricle Mildly increased left ventricular cavity size. Normal left ventricular systolic function. No regional wall motion abnormalities. Left ventricular ejection fraction is estimated at 57 %. Grade I/IV diastolic dysfunction (abnormal relaxation filling pattern), normal to mildly elevated filling pressures. Right Ventricle The right ventricle is normal in size and function. Right Atrium The right atrium is normal in size. Left Atrium The left atrium is normal in size. Mitral Valve Structurally normal mitral valve without significant stenosis or prolapse. There is trace mitral regurgitation. Aortic Valve Severe aortic valve calcification. Mild aortic valve stenosis, mean gradient 5.2 mmHg, DOMINGA 2 cm squared. Tricuspid Valve Structurally normal tricuspid valve without significant stenosis or regurgitation. Pulmonary artery systolic pressure is normal. Pulmonic Valve Trace pulmonary valve regurgitation. Pericardium Normal pericardium without effusion. Aorta Normal ascending aorta dimension. CONCLUSIONS 1-Mildly increased left ventricular cavity size. Normal left ventricular systolic function. No regional wall motion abnormalities. Left ventricular ejection fraction is estimated at 57 %. Grade I/IV diastolic dysfunction (abnormal relaxation filling pattern), normal to mildly elevated filling pressures. 2-Severe aortic valve calcification. Mild aortic valve stenosis, mean gradient 5.2 mmHg, DOMINGA 2 cm squared. 3-Structurally normal mitral valve without significant stenosis or prolapse. There is trace mitral regurgitation. 4-There is no pericardial effusion. 5-Pulmonary artery systolic pressure is within normal limits. 6-Right atrial pressure is around 5 mm of mercury. 7-There are no prior echocardiogram studies to compare. Margi Zarco MD (Electronically Signed) Final Date: 09 January 2020 16:51 S
[2020-01-09] MEDS: HYDROcodone-acetaminophen 5-325 mg Tablet 1 TAB PO (14:50)
[2020-01-09] MEDS: dexamethasone 4 mg/mL INJ 6 MG IVP (15:23)
[2020-01-09 17:35] LABS: Glucose Point of Care 133 mg/dL (70-110)
[2020-01-09 21:55] LABS: Glucose Point of Care 138 mg/dL (70-110)
[2020-01-10] VITALS (9 sets, daily range): BP systolic 94–128; BP diastolic 62–77; PULSE 62–91; RESP 16–18; TEMP 35.9–36.9; O2SAT 92–98
[2020-01-10] MEDS: doxycycline 100 MG in sodium chloride 0.9% (plus) 100 ML IV ×2 (01:13→14:00)
[2020-01-10] MEDS: acetaminophen 325 mg Tablet 650 MG PO (01:14)
[2020-01-10] MEDS: enoxaparin 40 mg/0.4 mL Syringe SUBCUT (01:14)
[2020-01-10] MEDS: HYDROcodone-acetaminophen 5-325 mg Tablet 1 TAB PO (02:16)
[2020-01-10 06:35] LABS: Glucose Point of Care 126 mg/dL (70-110)
[2020-01-10 07:05] LABS: Basophils % 0.3 %; Hematocrit 45.4 % (37.0-47.0); Hemoglobin 14.8 g/dL (11.5-15.3); Lymphocytes # 0.9 10^3/uL (0.8-4.8); Lymphocytes % 22.9 %; Mean Corpuscular HGB Conc 32.6 g/dL (30.0-36.0); Mean Corpuscular Hemoglobin 28.7 pg (28.0-34.0); Mean Corpuscular Volume 88.2 fL (81-99); Monocytes # 0.5 10^3/uL (0.2-0.9); Monocytes % 12.6 %; Neutrophils # 2.54 10^3/uL (1.8-7.7); Neutrophils % 63.7 %; Nucleated Red Blood Cells % 0 %; Platelet Count 153 10^3/cmm (130-400); Red Blood Count 5.15 10^6/uL (4.1-5.3); Red Cell Distribution Width 13.9 % (12.1-15.1)
[2020-01-10 07:22] LABS: INR 1.16 (0.8-1.2)
[2020-01-10 07:25] LABS: D Dimer 0.66 ug/mIFEU (0-0.59)
[2020-01-10 07:44] LABS: NT Pro B Type Natriuretic Pept 932 pg/mL (0-450)
[2020-01-10 07:55] LABS: Alanine Aminotransferase 29 U/L (0-33); Albumin Level 3.3 g/dL (3.5-5.2); Alkaline Phosphatase 50 IU/L (35-105); Anion Gap 13.4 (5-19); Aspartate Amino Transferase 33 U/L (0-32); Blood Urea Nitrogen 29 mg/dL (8-23); Carbon Dioxide 25 mmol/L (22-29); Chloride 100 mmol/L (98-107); Globulin 2.8 g/dL (1.3-4.6); Glucose 121 mg/dL (65-115); Magnesium 1.9 mg/dL (1.7-2.3); Osmolality Calculated 287 mOsm/kg (285-295); Phosphorus 3.5 mg/dL (2.5-4.5); Potassium 3.4 mmol/L (3.5-5.1); Sodium 135 mmol/L (136-145); Total Bilirubin 0.3 mg/dL (0.15-1.2); Total Protein 6.1 g/dL (6.6-8.7)
--- NOTE | 2020-01-10 09:23 | PC.SOCIAL ---
Pg 2 IMM Explained to pt via phone, Pg 2 IMM. No questions voiced. Provided a copy to pt care nurse to give to pt. Signed, dated, & timed a copy & placed in chart.
[2020-01-10] MEDS: gabapentin 300 mg Capsule 600 MG PO (10:05)
[2020-01-10] MEDS: hydroCHLOROthiazide 25 mg Tablet 12.5 MG PO (10:05)
[2020-01-10] MEDS: zinc gluconate 50 mg Tablet PO (10:05)
[2020-01-10] MEDS: pantoprazole DR 40 mg Tablet PO (10:06)
[2020-01-10] MEDS: ascorbic acid 500 mg Tablet PO ×2 (10:06→18:08)
[2020-01-10] MEDS: levothyroxine 25 mcg Tablet PO (10:06)
[2020-01-10] MEDS: nystatin cream 30 gm 1 APPLIC TOPICAL ×2 (10:06→18:08)
[2020-01-10 12:17] LABS: Glucose Point of Care 101 mg/dL (70-110)
--- NOTE | 2020-01-10 13:15 | P.PN_ITS ---
Subjective Subjective: Interval history: This morning patient was examined, she sitting up into a chair, on 2 L, no fevers, no chills, no nausea, no vomiting, Vitals/I&O/Wt Last Vital Signs Temp 97.8 F 01/10/20 11:51 Pulse 74 01/10/20 11:51 Resp 18 01/10/20 11:51 BP 103/62 01/10/20 11:51 Pulse Ox 95 01/10/20 11:51 01/09/20 01/10/20 01/10/20 22:59 06:59 14:59 Intake Total 240 / 820 120 / 120 Output Total 200 / 200 700 / 900 Balance 40 / 620 -700 / -80 120 / 120 Physical Exam Const: COMMON NORMALS: no acute distress and patient oriented x3 HENMT: COMMON NORMALS: normocephalic HEAD & SCALP: normocephalic Neck/C-Spine: COMMON NORMALS: no JVD Resp: COMMON NORMALS: normal respiratory effort, No retractions, No use of accessory muscles and clear to auscultation bilaterally AUSCULTATION: clear to auscultation bilaterally Cardio: COMMON NORMALS: no JVD, regular rate, regular rhythm, S1 normal heart sound present and S2 normal heart sound present RATE: regular rate RHYTHM: regular rhythm HEART SOUNDS: S1 normal heart sound present and S2 normal heart sound present GI: COMMON NORMALS: Normal to inspection, nondistended, normoactive bowel sounds present, Soft to palpation, non-tender, No hepatosplenomegaly present, no masses and no bruits PALPATION: Yes Soft to palpation and Yes No hepatosplenomegaly present Extremity: COMMON NORMALS: capillary refill normal, no clubbing, cyanosis or edema, no calf tenderness and no pedal edema Neuro: COMMON NORMALS: patient oriented x3 Psych: COMMON NORMALS: mental status grossly normal Data : 01/10/20 06:53 01/10/20 06:53 A&P Assessment and plan (1) Pneumonia due to 2019-nCoV: Admit to med/surg CTA without PE, shows B/L GGOs likely related to pneumonitis Remdisivir, dexamethasone 6mg IVP q24h Vit C 500 BID, ZInc gluconate Start on doxycycline today supplemental 02 to keep saturation >92% BNP 583, cardiac echocardiogram ordered EKG without acute ST-T wave changes continue levothyroxine, HCTZ at home doing. Hold lisinopril given cr 0.9, unknown last baseline Dvt ppx: lovenox Full code Status: Acute (2) Dementia: -Episodes of confusion, no episodes of agitation, no medications required, doing well with redirection Status: Acute Additional A&P Information Plan for today, wean oxygen as tolerated, continue aggressive pulmonary toilet, up out of bed, plans to discharge tomorrow after last remdesivir dose Attestations Medical Necessity Statement*: Patient requires hospitalization due to pneumonia secondary COVID-19 Coding Level of Care Code Acute [employer] Supervisor for [facility] Fw Diagnoses Pneumonia due to 2019-nCoV U07.1; J12.89 Dementia F03.90
[2020-01-10] MEDS: dexamethasone 4 mg/mL INJ 6 MG IVP (16:55)
[2020-01-10 17:18] LABS: Glucose Point of Care 104 mg/dL (70-110)
[2020-01-10 21:15] LABS: Glucose Point of Care 152 mg/dL (70-110)
[2020-01-11] VITALS (10 sets, daily range): BP systolic 101–133; BP diastolic 64–88; PULSE 67–101; RESP 16–20; TEMP 35.9–36.7; O2SAT 88–97
[2020-01-11] MEDS: doxycycline 100 MG in sodium chloride 0.9% (plus) 100 ML IV ×2 (02:08→13:55)
[2020-01-11] MEDS: enoxaparin 40 mg/0.4 mL Syringe SUBCUT (02:08)
[2020-01-11 05:22] LABS: Hematocrit 47.9 % (37.0-47.0); Hemoglobin 15.4 g/dL (11.5-15.3); Lymphocytes # 1.1 10^3/uL (0.8-4.8); Lymphocytes % 22.5 %; Mean Corpuscular HGB Conc 32.2 g/dL (30.0-36.0); Mean Corpuscular Hemoglobin 28.4 pg (28.0-34.0); Mean Corpuscular Volume 88.4 fL (81-99); Monocytes # 0.4 10^3/uL (0.2-0.9); Monocytes % 7.3 %; Neutrophils # 3.34 10^3/uL (1.8-7.7); Neutrophils % 69.8 %; Nucleated Red Blood Cells % 0 %; Platelet Count 186 10^3/cmm (130-400); Red Blood Count 5.42 10^6/uL (4.1-5.3); Red Cell Distribution Width 14.1 % (12.1-15.1); White Blood Count 4.8 10^3/uL (4.0-10.0)
[2020-01-11 06:00] LABS: NT Pro B Type Natriuretic Pept 4985 pg/mL (0-450); Procalcitonin 0.08 ng/mL (0-0.5)
[2020-01-11 06:08] LABS: INR 1.11 (0.8-1.2)
[2020-01-11 06:10] LABS: D Dimer 0.65 ug/mIFEU (0-0.59)
[2020-01-11 06:16] LABS: Alanine Aminotransferase 35 U/L (0-33); Albumin Level 3.7 g/dL (3.5-5.2); Alkaline Phosphatase 53 IU/L (35-105); Blood Urea Nitrogen 29 mg/dL (8-23); Calcium 9.2 mg/dL (8.5-10.5); Carbon Dioxide 24 mmol/L (22-29); Chloride 97 mmol/L (98-107); Globulin 3.1 g/dL (1.3-4.6); Glucose 125 mg/dL (65-115); Magnesium 1.8 mg/dL (1.7-2.3); Osmolality Calculated 287 mOsm/kg (285-295); Phosphorus 4.1 mg/dL (2.5-4.5); Sodium 135 mmol/L (136-145); Total Bilirubin 0.3 mg/dL (0.15-1.2); Total Protein 6.8 g/dL (6.6-8.7)
[2020-01-11 06:18] LABS: Anion Gap 17.8 (5-19); Aspartate Amino Transferase 30 U/L (0-32); Potassium 3.8 mmol/L (3.5-5.1)
[2020-01-11 07:00] LABS: Glucose Point of Care 118 mg/dL (70-110)
[2020-01-11] MEDS: zinc gluconate 50 mg Tablet PO (09:00)
[2020-01-11] MEDS: levothyroxine 25 mcg Tablet PO (09:01)
[2020-01-11] MEDS: hydroCHLOROthiazide 25 mg Tablet 12.5 MG PO (09:01)
[2020-01-11] MEDS: gabapentin 300 mg Capsule 600 MG PO (09:01)
[2020-01-11] MEDS: pantoprazole DR 40 mg Tablet PO (09:01)
[2020-01-11] MEDS: ascorbic acid 500 mg Tablet PO ×2 (09:01→17:46)
[2020-01-11] MEDS: nystatin cream 30 gm 1 APPLIC TOPICAL ×2 (09:06→17:46)
--- NOTE | 2020-01-11 11:44 | PM.DCS ---
Discharge Providers Date of Admission: 01/07/20 21:53 Date of Discharge: January 11, 2020 Attending Provider at Admission: Elma Reid MD Attending Provider at Discharge: Guillermo Mendes MD Primary Care Provider: Esme Vo Diagnoses at Discharge Discharge Diagnosis (1) Pneumonia due to 2019-nCoV: Status: Acute (2) Dementia: Status: Acute Reason for Visit Reason for Visit: WEAKNESS / LEG CRAMPS Hospital Course Hospital Course This is a 84-year-old female with a past medical history of hypothyroidism, hypertension, GERD, who presents to [facility] due to complaints of shortness of breath, fevers, generalized feeling unwell Patient was admitted to [facility] for pneumonia secondary to COVID-19 pneumonia, received Decadron, remdesivir, vitamin C, zinc, inhaler therapy, doxycycline for antibiotic coverage, clinically monitored. Patient clinically improved, respiratory status improved, weaned down to 2 L nasal cannula. I have discharged the patient on Advair, albuterol, vitamin C, zinc, steroid taper, doxycycline. In terms of anticoagulation for hypercoagulability after COVID-19, patient does require 2 L of oxygen on discharge, her D-dimers were elevated, I had an extensive discussion with patient about hypercoagulability prophylaxis after COVID-19, there is no good large volume studies, only institutional protocols, however we do see high risk of DVTs, PEs, MIs, strokes in patients that are discharged from the hospital for COVID-19. Certainly there is significant risk of GI bleed associate with anticoagulation. After discussion of the risk and benefits of anticoagulation, she voiced understanding, all questions answered, agreed to proceed with anticoagulation of Eliquis 2.5 mg twice daily for at least 3 months. Should follow-up with primary care provider as outpatient for decision of continuation of anticoagulation therapy. Physical Exam Const: COMMON NORMALS: no acute distress and patient oriented x3 HENMT: COMMON NORMALS: normocephalic HEAD & SCALP: normocephalic Neck/C-Spine: COMMON NORMALS: no JVD Resp: COMMON NORMALS: normal respiratory effort, No retractions, No use of accessory muscles and clear to auscultation bilaterally AUSCULTATION: clear to auscultation bilaterally Cardio: COMMON NORMALS: no JVD, regular rate, regular rhythm, S1 normal heart sound present and S2 normal heart sound present RATE: regular rate RHYTHM: regular rhythm HEART SOUNDS: S1 normal heart sound present and S2 normal heart sound present GI: COMMON NORMALS: Normal to inspection, nondistended, normoactive bowel sounds present, Soft to palpation, non-tender, No hepatosplenomegaly present, no masses and no bruits PALPATION: Yes Soft to palpation and Yes No hepatosplenomegaly present Extremity: COMMON NORMALS: capillary refill normal, no clubbing, cyanosis or edema, no calf tenderness and no pedal edema Neuro: COMMON NORMALS: patient oriented x3 Psych: COMMON NORMALS: mental status grossly normal Discharge Data Data Completed and Pending: Completed Studies During Hospitalization Category Date Time Status CT angio chest PE protcl [id number] Stat Cat Scan 01/07/20 16:39 Completed XR chest 1V cecil ble [id number] Routine Exams 01/09/20 07:00 Completed XR chest 1V cecil ble [id number] Stat Exams 01/07/20 17:10 Completed CV echo complete* [id number] Routine Ultrasound 01/09/20 13:24 Completed Pending at discharge Category Date Time Status Complete Blood Co unt w/Auto AM LABS Lab 01/12/20 04:00 Ordered Urinalysis Stat Lab 01/07/20 15:51 Uncollected Labs from last 24 hours 01/11/20 01/11/20 01/11/20 06:43 05:10 05:10 WBC 4.8 RBC 5.42 H Hgb 15.4 H Hct 47.9 H MCV 88.4 MCH 28.4 MCHC 32.2 RDW 14.1 Plt Count 186 MPV 12.0 H Neut % (Auto) 69.8 Lymph % (Auto) 22.5 Gregory % (Auto) 7.3 Eos % (Auto) 0.0 Baso % (Auto) 0.0 Neut # (Auto) 3.34 Lymph # (Auto) 1.1 Gregory # (Auto) 0.4 Eos # (Auto) 0.0 Baso # (Auto) 0.0 Nucleated RBC % (a uto) 0 Nucleated RBCs # 0.0 PT 14.70 INR 1.11 D-Dimer 0.65 H Sodium Potassium Chloride Carbon Dioxide Anion Gap BUN Creatinine GFR Calculation Glucose POC Glucose 118 Calculated Osmolal ity Calcium Phosphorus Magnesium Total Bilirubin AST ALT Alkaline Phosphata se C-Reactive Protein NT-Pro-B Natriuret Pep Total Protein Albumin Globulin Procalcitonin 01/11/20 01/10/20 01/10/20 05:10 21:00 16:33 WBC RBC Hgb Hct MCV MCH MCHC RDW Plt Count MPV Neut % (Auto) Lymph % (Auto) Gregory % (Auto) Eos % (Auto) Baso % (Auto) Neut # (Auto) Lymph # (Auto) Gregory # (Auto) Eos # (Auto) Baso # (Auto) Nucleated RBC % (a uto) Nucleated RBCs # PT INR D-Dimer Sodium 135 L Potassium 3.8 Chloride 97 L Carbon Dioxide 24 Anion Gap 17.8 BUN 29 H Creatinine 0.9 GFR Calculation Not Reportable Glucose 125 H POC Glucose 152 104 Calculated Osmolal ity 287 Calcium 9.2 Phosphorus 4.1 Magnesium 1.8 Total Bilirubin 0.3 AST 30 ALT 35 H Alkaline Phosphata se 53 C-Reactive Protein 15.0 H NT-Pro-B Natriuret Pep 4985 H Total Protein 6.8 Albumin 3.7 Globulin 3.1 Procalcitonin 0.08 01/10/20 11:39 WBC RBC Hgb Hct MCV MCH MCHC RDW Plt Count MPV Neut % (Auto) Lymph % (Auto) Gregory % (Auto) Eos % (Auto) Baso % (Auto) Neut # (Auto) Lymph # (Auto) Gregory # (Auto) Eos # (Auto) Baso # (Auto) Nucleated RBC % (a uto) Nucleated RBCs # PT INR D-Dimer Sodium Potassium Chloride Carbon Dioxide Anion Gap BUN Creatinine GFR Calculation Glucose POC Glucose 101 Calculated Osmolal ity Calcium Phosphorus Magnesium Total Bilirubin AST ALT Alkaline Phosphata se C-Reactive Protein NT-Pro-B Natriuret Pep Total Protein Albumin Globulin Procalcitonin Vitals: Last Vital Signs Temp 96.6 F L 01/11/20 08:00 Pulse 79 01/11/20 08:00 Resp 18 01/11/20 08:00 BP 133/87 01/11/20 08:00 Pulse Ox 88 L 01/11/20 11:33 Discharge Plan Discharge Patient Disposition: Home Condition: Stable Prescriptions: New doxycycline hyclate 100 mg capsule 100 mg PO BID 5 Days Qty: 10 RF: 0 Eliquis 2.5 mg tablet 2.5 mg PO BID 30 Days Qty: 60 RF: 0 ascorbic acid (vitamin C) [Vitamin C] 500 mg Tablet 500 mg PO BID 30 Days Qty: 60 RF: 0 fluticasone propion-salmeterol [Advair Diskus] 250-50 mcg/dose Blister With Device 1 ea inhalation BID.RESPIRATORY Qty: 60 RF: 0 zinc gluconate 50 mg Tablet 50 mg PO DAILY 30 Days Qty: 30 RF: 0 prednisone 10 mg tablet See Rx Instructions .ROUTE .COMPLEX Qty: 53 RF: 0 albuterol sulfate 90 mcg/actuation HFA aerosol inhaler 1 inh inhalation 6XD PRN (Reason: shortness of breath or wheezing) Qty: 18 RF: 0 Continued nystatin 100,000 unit/gram cream 1 applic TOPICAL BID RF: 0 omeprazole 20 mg capsule,delayed release(DR/EC) 20 mg PO DAILY RF: 0 cholecalciferol (vitamin D3) 25 mcg (1,000 unit) capsule 25 mcg PO DAILY RF: 0 hydrochlorothiazide 12.5 mg tablet 12.5 mg PO DAILY RF: 0 levothyroxine 25 mcg capsule 25 mcg PO DAILY RF: 0 gabapentin 600 mg tablet 600 mg PO DAILY RF: 0 lisinopril 10 mg Tablet 10 mg PO DAILY RF: 0 Bystolic 5 mg tablet 5 mg PO DAILY RF: 0 Discharge Orders: Discharge Order (Routine); Ordered 01/11/20 Ordered By: Guillermo Mendes Other Ambulatory Orders: DME: Oxygen (Order) Location: None Selected Ordered By: Guillermo Mendes Referrals: Esme Vo [Primary Care Provider] - 7-10 days Discharge Diet: Regular Discharge Activity: Resume usual activity Activity Restrictions/Additional Instructions: -Please drink plenty of electrolyte balance fluids -Please take steroid taper, antibiotics as prescribed -Advair and albuterol for inhaler therapy Discharge Attestations Time Spent in Discharge Care*: less than 30 min Quality Metrics Clinical Quality Measures During this hospital stay, did patient experience: None Coding Level of Care Code Acute Certified Medication Aide for [facility] Fwd Diagnoses Pneumonia due to 2019-nCoV U07.1; J12.89 Dementia F03.90
[2020-01-11 12:34] LABS: Glucose Point of Care 113 mg/dL (70-110)
[2020-01-11 17:23] LABS: Glucose Point of Care 98 mg/dL (70-110)
[2020-01-11] MEDS: dexamethasone 4 mg/mL INJ 6 MG IVP (17:46)
[2020-01-11 20:05] LABS: Glucose Point of Care 153 mg/dL (70-110)
[2020-01-11] MEDS: HYDROcodone-acetaminophen 5-325 mg Tablet 1 TAB PO (21:02)
[2020-01-12] MEDS: enoxaparin 40 mg/0.4 mL Syringe SUBCUT (01:29)
[2020-01-12] MEDS: doxycycline 100 mg Tablet PO (01:57)
[2020-01-12 04:00] VITALS: BP 131/88; PULSE 81; RESP 18; TEMP 36.5; O2SAT 92
[2020-01-12 08:00] VITALS: BP 131/74; PULSE 83; RESP 20; TEMP 36.6; O2SAT 96
[2020-01-12] MEDS: ascorbic acid 500 mg Tablet PO (09:07)
[2020-01-12] MEDS: levothyroxine 25 mcg Tablet PO (09:07)
[2020-01-12] MEDS: pantoprazole DR 40 mg Tablet PO (09:07)
[2020-01-12] MEDS: gabapentin 300 mg Capsule 600 MG PO (09:07)
[2020-01-12] MEDS: hydroCHLOROthiazide 25 mg Tablet 12.5 MG PO (09:08)
[2020-01-12] MEDS: nystatin cream 30 gm 1 APPLIC TOPICAL (09:08)
[2020-01-12] MEDS: zinc gluconate 50 mg Tablet PO (09:08)
--- NOTE | 2020-01-12 10:45 | P.PN_ITS ---
Subjective Subjective: Interval history: This is a progress note for 01/11/2020 Patient was seen this morning, she is sitting up to the side of the bed, on 2 L nasal cannula, denies shortness of breath, denies chest pain, denies lightheadedness, denies dizziness, the plan is for her to be discharged after her last dose of remdesivir, around 7 or so, she is ready to go home, we had extensive discussion about anticoagulation with DILMA, she agrees to proceed with anticoagulation, advised risk and benefits, voiced understanding, all questions answered, agreed to proceed Vitals/I&O/Wt Last Vital Signs Temp 97.9 F 01/12/20 08:00 Pulse 83 01/12/20 08:00 Resp 20 H 01/12/20 08:00 BP 131/74 01/12/20 08:00 Pulse Ox 96 01/12/20 08:00 01/11/20 01/12/20 01/12/20 22:59 06:59 14:59 Intake Total 600 / 1200 360 / 1560 Output Total 1300 / 1300 Balance 600 / 1200 -940 / 260 Physical Exam Const: COMMON NORMALS: no acute distress and patient oriented x3 HENMT: COMMON NORMALS: normocephalic HEAD & SCALP: normocephalic Neck/C-Spine: COMMON NORMALS: no JVD Resp: COMMON NORMALS: normal respiratory effort, No retractions, No use of accessory muscles and clear to auscultation bilaterally AUSCULTATION: clear to auscultation bilaterally Cardio: COMMON NORMALS: no JVD, regular rate, regular rhythm, S1 normal heart sound present and S2 normal heart sound present RATE: regular rate RHYTHM: regular rhythm HEART SOUNDS: S1 normal heart sound present and S2 normal heart sound present GI: COMMON NORMALS: Normal to inspection, nondistended, normoactive bowel sounds present, Soft to palpation, non-tender, No hepatosplenomegaly present, no masses and no bruits PALPATION: Yes Soft to palpation and Yes No hepatosplenomegaly present Extremity: COMMON NORMALS: capillary refill normal, no clubbing, cyanosis or edema, no calf tenderness and no pedal edema Neuro: COMMON NORMALS: patient oriented x3 Psych: COMMON NORMALS: mental status grossly normal Data : 01/11/20 05:10 01/11/20 05:10 A&P Assessment and plan (1) Pneumonia due to 2019-nCoV: Admit to med/surg CTA without PE, shows B/L GGOs likely related to pneumonitis Remdisivir, dexamethasone 6mg IVP q24h Vit C 500 BID, ZInc gluconate Doxycycline supplemental 02 to keep saturation >92% BNP 583, cardiac echocardiogram ordered EKG without acute ST-T wave changes continue levothyroxine, HCTZ, lisinopril Dvt ppx: lovenox Full code Status: Acute (2) Dementia: -Episodes of confusion, no episodes of agitation, no medications required, doing well with redirection Status: Acute Additional A&P Information Plan for today, wean oxygen as tolerated, continue aggressive pulmonary toilet, up out of bed, plans to discharge after last remdesivir dose Attestations Medical Necessity Statement*: Patient requires hospitalization for COVID-19, will be discharged later on this evening after last remdesivir dose Coding Level of Care Code Acute Home Care Consultant for [facility] Lien Diagnoses Pneumonia due to 2019-nCoV U07.1; J12.89 Dementia F03.90
[2020-01-12 11:10] VITALS: BP 131/74; PULSE 83; RESP 20; TEMP 36.6; O2SAT 96
--- NOTE | 2020-01-12 11:40 | PC.SOCIAL ---
IMM Update Pg.2 of IMM updated and reviewed with patient over phone.
--- NOTE | 2020-01-13 16:25 | PC.SOCIAL ---
Followed up with patient post discharge. Discussed in detail importance of wearing O2, taking all medications, and following up with provider. Daughter is staying with her and we were able to go through each of the medications in detail. Discussed importance of eating and drinking well. We discussed importance of adding in activity slowly. Daughter is aware that patient should not take any NSAID's while on Eliquis medication. Daughter will have her seen within the week by Primary provider. She will discuss what meds will need to continue once scripts close to completion with provider. We discussed COVID precations. Daughter's questions were answered. Daughter does not think patient would be interested or able to donate plasma. Provided number if daughter has further questions or concerns.
== END 2020-01-12 11:11 | disposition home or self-care (01) | DRG 177 ==
LOC: ER 19:01 → MEDSURG 22:08
PROVIDERS: Family Medicine; Nurse Practitioner Family; Admitting Provider Student in an Organized Health Care Education/Training Program; Emergency Provider Emergency Medicine; PCP Nurse Practitioner Family; Visit Provider Family Medicine
DX: U07.1 COVID-19 (principal); J12.89 Other viral pneumonia; J96.01 Acute respiratory failure with hypoxia; E03.9 Hypothyroidism, unspecified; I10 Essential (primary) hypertension; G89.29 Other chronic pain; M25.551 Pain in right hip; F03.90 Unspecified dementia, unspecified severity, without behavioral disturbance, psychotic disturbance, mood disturbance, and anxiety; F32.9 Major depressive disorder, single episode, unspecified; G25.81 Restless legs syndrome; E55.9 Vitamin D deficiency, unspecified; K21.9 Gastro-esophageal reflux disease without esophagitis
CPT/HCPCS: 12345; 36415; 36416; 71045; 71275; 80053; 82962; 83615; 83735; 83880; 84100; 84145; 84484; 85025; 85378; 85610; 85651; 86140; 87426; 93005; 93306; 94640; 94664; 96372; 96375; 99282; J1100; J1650; J1815; J3490; Q9967

== ENCOUNTER → 2020-04-09 10:40 | Outpatient (BNVA) | payer MEDICARE, SELFPAY | PROVIDERS: PCP Nurse Practitioner Family; Visit Provider Anesthesiology Pain Medicine | DX: M25.551 Pain in right hip (principal) | CPT/HCPCS: 99214 ==

== ENCOUNTER → 2020-04-14 13:07 | Outpatient (BNVA) | payer MEDICARE, SELFPAY | PROVIDERS: PCP Nurse Practitioner Family; Visit Provider Anesthesiology Pain Medicine | DX: G89.29 Other chronic pain (principal); M25.551 Pain in right hip | CPT/HCPCS: 20610; 77002; J1030; J3490 ==

== ENCOUNTER → 2020-05-10 10:30 | Outpatient (BNVA) | payer MEDICARE, SELFPAY | PROVIDERS: PCP Nurse Practitioner Family; Visit Provider Anesthesiology Pain Medicine | DX: M16.11 Unilateral primary osteoarthritis, right hip (principal) | CPT/HCPCS: 99214 ==

== ENCOUNTER → 2020-07-22 14:49 | Outpatient (BNVA) | payer MEDICARE, SELFPAY | PROVIDERS: PCP Nurse Practitioner Family; Referring Provider Nurse Practitioner Family; Visit Provider Nurse Practitioner Family | DX: M25.551 Pain in right hip (principal) | CPT/HCPCS: 73502 ==

== ENCOUNTER 2020-08-10 17:04 | Observation (INO) | payer MEDICARE, SELFPAY ==
[2020-08-10 17:48] VITALS: BP 80/55; PULSE 74; RESP 14; O2SAT 95; BMI 27.4
--- NOTE | 2020-08-10 17:52 | XRR_ITS ---
PROCEDURE INFORMATION: Exam: XR Chest Exam date and time: 08/10/2020 5:52 PM Age: 84 years old Clinical indication: Shortness of breath; Patient HX: Low BP, frequent fall. HX of dementia; Additional info: Dyspnea/cough TECHNIQUE: Imaging protocol: XR of the chest. Views: 1 view. COMPARISON: CR XR chest 1V portable [id number] 01/09/2020 6:20 AM FINDINGS: Lungs: Hyperinflated lungs, most likely COPD. Mild scarring in the lung bases. No consolidation. Pleural spaces: Unremarkable. No pleural effusion. No pneumothorax. Heart/Mediastinum: Mild cardiomegaly. Hiatal hernia. Bones/joints: Unremarkable. XR/XR chest 1V portable [id number] IMPRESSION: No acute findings.
--- NOTE | 2020-08-10 17:53 | ED_ITS ---
Documented by User: Francesco Ibarra DO 08/23/20 14:05 HPI - Syncope General: Chief Complaint: General Medical Stated Complaint: Low BP, Time Seen by Provider: 08/10/20 17:42 History of Present Illness: HPI narrative: 84-year-old female presents emergency room after multiple episodes of orthostatic hypotension. She is fallen multiple times she is on antihypertensive denies any recent medication changes. She puts her medicines in a pill dispenser so they are relatively confident she is not doubled up or taken any extra medications is been going on with her. At times complaining of buttock pain and hip pain although she was ambulatory to the room she denies any chest pain. She did fall once and hit her face had an episode of epistaxis had not been seen after that. complaint: collapsed Onset (ago): day(s) Prodromal symptoms: lightheaded Witnessed: Yes - by Bystander Context: standing up Injuries sustained associated with event: none Associated symptoms: Deny abdominal pain, chest pain, fever(s), headache(s), lightheadedness, nausea, short of breath, vertigo or weakness Treatments prior to arrival: none Review of Systems Const: Denies: fever(s) ENMT: Denies: throat pain, ear or mastoid pain, nasal discharge or nasal congestion Card: Denies: chest pain or lightheadedness Resp: Denies: dyspnea, productive cough or non-productive cough GI: Denies: abdominal pain or nausea : Denies: flank pain, difficulty voiding, dysuria, urinary frequency or urinary urgency Skin/Breast: Denies: rash or pruritus Neuro: Denies: headache(s) or vertigo PFS ED PFSH: Medical History (Updated 08/13/20 @ 00:02 by ) Cholecystectomy planned Chronic right hip pain Dementia Depression Hip osteoarthritis Hypertension Hypothyroidism Opioid contract exists Polypharmacy RLS (restless legs syndrome) Vitamin D deficiency Surgical History History of hysterectomy Family History Other Cancer Diabetes Hypertension Social History Smoking and tobacco status: never smoked Alcohol intake: never Physical Exam Const: COMMON NORMALS: no acute distress GENERAL APPEARANCE: cooperative and comfortable ORIENTATION/CONSCIOUSNESS: Yes awake, Yes oriented to person, Yes oriented to place and Yes oriented to time HENMT: COMMON NORMALS: normocephalic, hearing grossly normal bilaterally and external ears normal HEAD & SCALP: normocephalic EXTERNAL EAR: Yes external ears normal Neck/C-Spine: COMMON NORMALS: no JVD Resp: COMMON NORMALS: normal respiratory effort, No retractions, No use of accessory muscles and clear to auscultation bilaterally AUSCULTATION: clear to auscultation bilaterally Cardio: COMMON NORMALS: no JVD, regular rate, regular rhythm and No murmurs present (Cardio) RATE: regular rate RHYTHM: regular rhythm GI: COMMON NORMALS: Soft to palpation and No hepatosplenomegaly present AUSCULTATION: Yes normoactive bowel sounds PALPATION: Yes Soft to palpation, No Tenderness to palpation present (GI), No Guarding due to palpation present (GI) and Yes No hepatosplenomegaly present Extremity: COMMON NORMALS: normal to inspection, capillary refill normal, no clubbing, cyanosis or edema, no calf tenderness and no pedal edema Neuro: SENSORIUM/ORIENTATION: Yes oriented to person, Yes oriented to place and Yes oriented to time Skin: COMMON NORMALS: no rashes or lesions noted GENERAL SKIN EXAM: no rashes or lesions noted Course Vital Signs: Vital signs: Vital Signs Temperature 97.9 F 08/12/20 16:51 Pulse Rate 90 08/12/20 16:51 Respiratory Rate 17 08/12/20 16:51 Blood Pressure 134/93 08/12/20 16:51 Pulse Oximetry 92 08/12/20 16:51 MDM - Syncope MDM Narrative: Medical decision making narrative: Care turned over to Dr. Giacomo bang at change of shift see his note for final diagnosis and disposition Lab Data: Labs: Lab Results 08/10/20 08/10/20 08/10/20 Range/Units 18:00 19:24 19:25 WBC 11.9 H (4.0-10.0) 10^3/ uL RBC 4.70 (4.1-5.3) 10^6/u L Hgb 14.3 (11.5-15.3) g/dL Hct 44.2 (37.0-47.0) % MCV 94.0 (81-99) fL MCH 30.4 (28.0-34.0) pg MCHC 32.4 (30.0-36.0) g/dL RDW 15.9 H (12.1-15.1) % Plt Count 244 (130-400) 10^3/c mm MPV 10.8 H (7.4-10.4) fL Neut % (Auto) 73.2 % Lymph % (Auto) 16.1 % Coffey % (Auto) 8.0 % Eos % (Auto) 1.5 % Baso % (Auto) 0.6 % Neut # (Auto) 8.67 H (1.8-7.7) 10^3/u L Lymph # (Auto) 1.9 (0.8-4.8) 10^3/u L Coffey # (Auto) 1.0 H (0.2-0.9) 10^3/u L Eos # (Auto) 0.2 (0.0-0.8) 10^3/u L Baso # (Auto) 0.1 (0.0-0.1) 10^3/u L Nucleated RBC % (a uto) 0 % Nucleated RBCs # 0.0 /100WBC Sodium (136-145) mmol/L Potassium (3.5-5.1) mmol/L Chloride (98-107) mmol/L Carbon Dioxide (22-29) mmol/L Anion Gap (5-19) BUN (8-23) mg/dL Creatinine (0.5-0.9) mg/dL GFR Calculation Glucose (65-115) mg/dL Calculated Osmolal ity (285-295) mOsm/k g Lactic Acid (0.5-2.2) mmol/L Calcium (8.5-10.5) mg/dL Troponin T Baselin e (0-10) ng/L Troponin T 120 Min [place] (0-10) ng/L Delta Troponin T (0-10) ABS# TSH 1.57 (0.27-4.20) uIU/ mL Urine Color Yellow (Yellow) Urine Appearance Clear (CLEAR) Urine pH 5 (5-7) Ur Specific Gravit y 1.010 (1.005-1.030) Urine Protein Neg (Negative) Urine Glucose (UA) Norm (Normal) Urine Ketones Negative (Negative) Urine Blood Neg (Negative) Urine Nitrate Negative (Negative) Urine Bilirubin Neg (Negative) Urine Urobilinogen Norm (Negative) mg/dL Ur Leukocyte Faye ase Negative (Negative) 08/10/20 08/10/20 08/10/20 Range/Units 19:25 19:25 19:25 WBC (4.0-10.0) 10^3/ uL RBC (4.1-5.3) 10^6/u L Hgb (11.5-15.3) g/dL Hct (37.0-47.0) % MCV (81-99) fL MCH (28.0-34.0) pg MCHC (30.0-36.0) g/dL RDW (12.1-15.1) % Plt Count (130-400) 10^3/c mm MPV (7.4-10.4) fL Neut % (Auto) % Lymph % (Auto) % Coffey % (Auto) % Eos % (Auto) % Baso % (Auto) % Neut # (Auto) (1.8-7.7) 10^3/u L Lymph # (Auto) (0.8-4.8) 10^3/u L Coffey # (Auto) (0.2-0.9) 10^3/u L Eos # (Auto) (0.0-0.8) 10^3/u L Baso # (Auto) (0.0-0.1) 10^3/u L Nucleated RBC % (a uto) % Nucleated RBCs # /100WBC Sodium 136 (136-145) mmol/L Potassium 2.9 L (3.5-5.1) mmol/L Chloride 89 L (98-107) mmol/L Carbon Dioxide 31 H (22-29) mmol/L Anion Gap 18.9 (5-19) BUN 45 H (8-23) mg/dL Creatinine 1.6 H (0.5-0.9) mg/dL GFR Calculation Not Reportable Glucose 92 (65-115) mg/dL Calculated Osmolal ity 293 (285-295) mOsm/k g Lactic Acid 1.3 (0.5-2.2) mmol/L Calcium 8.7 (8.5-10.5) mg/dL Troponin T Baselin e 30 H (0-10) ng/L Troponin T 120 Min [place] (0-10) ng/L Delta Troponin T (0-10) ABS# TSH (0.27-4.20) uIU/ mL Urine Color (Yellow) Urine Appearance (CLEAR) Urine pH (5-7) Ur Specific Gravit y (1.005-1.030) Urine Protein (Negative) Urine Glucose (UA) (Normal) Urine Ketones (Negative) Urine Blood (Negative) Urine Nitrate (Negative) Urine Bilirubin (Negative) Urine Urobilinogen (Negative) mg/dL Ur Leukocyte Faye ase (Negative) 08/10/20 08/10/20 Range/Units 21:53 21:53 WBC (4.0-10.0) 10^3/ uL RBC (4.1-5.3) 10^6/u L Hgb (11.5-15.3) g/dL Hct (37.0-47.0) % MCV (81-99) fL MCH (28.0-34.0) pg MCHC (30.0-36.0) g/dL RDW (12.1-15.1) % Plt Count (130-400) 10^3/c mm MPV (7.4-10.4) fL Neut % (Auto) % Lymph % (Auto) % Coffey % (Auto) % Eos % (Auto) % Baso % (Auto) % Neut # (Auto) (1.8-7.7) 10^3/u L Lymph # (Auto) (0.8-4.8) 10^3/u L Coffey # (Auto) (0.2-0.9) 10^3/u L Eos # (Auto) (0.0-0.8) 10^3/u L Baso # (Auto) (0.0-0.1) 10^3/u L Nucleated RBC % (a uto) % Nucleated RBCs # /100WBC Sodium (136-145) mmol/L Potassium (3.5-5.1) mmol/L Chloride (98-107) mmol/L Carbon Dioxide (22-29) mmol/L Anion Gap (5-19) BUN (8-23) mg/dL Creatinine (0.5-0.9) mg/dL GFR Calculation Glucose (65-115) mg/dL Calculated Osmolal ity (285-295) mOsm/k g Lactic Acid (0.5-2.2) mmol/L Calcium (8.5-10.5) mg/dL Troponin T Baselin e (0-10) ng/L Troponin T 120 Min [place] 30.27 H (0-10) ng/L Delta Troponin T 0.27 (0-10) ABS# TSH Cancelled (0.27-4.20) uIU/ mL Urine Color (Yellow) Urine Appearance (CLEAR) Urine pH (5-7) Ur Specific Gravit y (1.005-1.030) Urine Protein (Negative) Urine Glucose (UA) (Normal) Urine Ketones (Negative) Urine Blood (Negative) Urine Nitrate (Negative) Urine Bilirubin (Negative) Urine Urobilinogen (Negative) mg/dL Ur Leukocyte Faye ase (Negative) Discharge Plan Discharge Patient Disposition: Admitted As Inpatient Admit Provider: Margi Oliver Clinical Impression: Hypotension, Weakness Condition: Stable Discharge Diet: Cardiac Discharge Activity: Resume usual activity Coding Level of Care Code ED Ornamental Ironworking Supervisor for Chg Fwd Exam Comprehensive Documented by User: Jean Cartwright MD 08/10/20 22:50 HPI - Syncope General: Chief Complaint: General Medical Stated Complaint: Low BP, Time Seen by Provider: 08/10/20 17:42 [facility] ED PFSH: Medical History (Updated 08/13/20 @ 00:02 by ) Cholecystectomy planned Chronic right hip pain Dementia Depression Hip osteoarthritis Hypertension Hypothyroidism Opioid contract exists Polypharmacy RLS (restless legs syndrome) Vitamin D deficiency Surgical History History of hysterectomy Family History Other Cancer Diabetes Hypertension Social History Smoking and tobacco status: never smoked Alcohol intake: never Course Vital Signs: Vital signs: Vital Signs Temperature 97.9 F 08/12/20 16:51 Pulse Rate 90 08/12/20 16:51 Respiratory Rate 17 08/12/20 16:51 Blood Pressure 134/93 08/12/20 16:51 Pulse Oximetry 92 08/12/20 16:51 MDM - Syncope MDM Narrative: Medical decision making narrative: Patient presents here with generalized weakness and was found to be hypotensive. Believe her hypotension is likely due to her blood pressure medicines and likely needs adjustment of her medicines. She has no signs of infection here. Head CT here is normal. I spoke to the hospitalist and will admit at this time. Lab Data: Labs: Lab Results 08/10/20 08/10/20 08/10/20 Range/Units 18:00 19:24 19:25 WBC 11.9 H (4.0-10.0) 10^3/ uL RBC 4.70 (4.1-5.3) 10^6/u L Hgb 14.3 (11.5-15.3) g/dL Hct 44.2 (37.0-47.0) % MCV 94.0 (81-99) fL MCH 30.4 (28.0-34.0) pg MCHC 32.4 (30.0-36.0) g/dL RDW 15.9 H (12.1-15.1) % Plt Count 244 (130-400) 10^3/c mm MPV 10.8 H (7.4-10.4) fL Neut % (Auto) 73.2 % Lymph % (Auto) 16.1 % Coffey % (Auto) 8.0 % Eos % (Auto) 1.5 % Baso % (Auto) 0.6 % Neut # (Auto) 8.67 H (1.8-7.7) 10^3/u L Lymph # (Auto) 1.9 (0.8-4.8) 10^3/u L Coffey # (Auto) 1.0 H (0.2-0.9) 10^3/u L Eos # (Auto) 0.2 (0.0-0.8) 10^3/u L Baso # (Auto) 0.1 (0.0-0.1) 10^3/u L Nucleated RBC % (a uto) 0 % Nucleated RBCs # 0.0 /100WBC Sodium (136-145) mmol/L Potassium (3.5-5.1) mmol/L Chloride (98-107) mmol/L Carbon Dioxide (22-29) mmol/L Anion Gap (5-19) BUN (8-23) mg/dL Creatinine (0.5-0.9) mg/dL GFR Calculation Glucose (65-115) mg/dL Calculated Osmolal ity (285-295) mOsm/k g Lactic Acid (0.5-2.2) mmol/L Calcium (8.5-10.5) mg/dL Troponin T Baselin e (0-10) ng/L Troponin T 120 Min [place] (0-10) ng/L Delta Troponin T (0-10) ABS# TSH 1.57 (0.27-4.20) uIU/ mL Urine Color Yellow (Yellow) Urine Appearance Clear (CLEAR) Urine pH 5 (5-7) Ur Specific Gravit y 1.010 (1.005-1.030) Urine Protein Neg (Negative) Urine Glucose (UA) Norm (Normal) Urine Ketones Negative (Negative) Urine Blood Neg (Negative) Urine Nitrate Negative (Negative) Urine Bilirubin Neg (Negative) Urine Urobilinogen Norm (Negative) mg/dL Ur Leukocyte Faye ase Negative (Negative) 08/10/20 08/10/20 08/10/20 Range/Units 19:25 19:25 19:25 WBC (4.0-10.0) 10^3/ uL RBC (4.1-5.3) 10^6/u L Hgb (11.5-15.3) g/dL Hct (37.0-47.0) % MCV (81-99) fL MCH (28.0-34.0) pg MCHC (30.0-36.0) g/dL RDW (12.1-15.1) % Plt Count (130-400) 10^3/c mm MPV (7.4-10.4) fL Neut % (Auto) % Lymph % (Auto) % Coffey % (Auto) % Eos % (Auto) % Baso % (Auto) % Neut # (Auto) (1.8-7.7) 10^3/u L Lymph # (Auto) (0.8-4.8) 10^3/u L Coffey # (Auto) (0.2-0.9) 10^3/u L Eos # (Auto) (0.0-0.8) 10^3/u L Baso # (Auto) (0.0-0.1) 10^3/u L Nucleated RBC % (a uto) % Nucleated RBCs # /100WBC Sodium 136 (136-145) mmol/L Potassium 2.9 L (3.5-5.1) mmol/L Chloride 89 L (98-107) mmol/L Carbon Dioxide 31 H (22-29) mmol/L Anion Gap 18.9 (5-19) BUN 45 H (8-23) mg/dL Creatinine 1.6 H (0.5-0.9) mg/dL GFR Calculation Not Reportable Glucose 92 (65-115) mg/dL Calculated Osmolal ity 293 (285-295) mOsm/k g Lactic Acid 1.3 (0.5-2.2) mmol/L Calcium 8.7 (8.5-10.5) mg/dL Troponin T Baselin e 30 H (0-10) ng/L Troponin T 120 Min [place] (0-10) ng/L Delta Troponin T (0-10) ABS# TSH (0.27-4.20) uIU/ mL Urine Color (Yellow) Urine Appearance (CLEAR) Urine pH (5-7) Ur Specific Gravit y (1.005-1.030) Urine Protein (Negative) Urine Glucose (UA) (Normal) Urine Ketones (Negative) Urine Blood (Negative) Urine Nitrate (Negative) Urine Bilirubin (Negative) Urine Urobilinogen (Negative) mg/dL Ur Leukocyte Faye ase (Negative) 08/10/20 08/10/20 Range/Units 21:53 21:53 WBC (4.0-10.0) 10^3/ uL RBC (4.1-5.3) 10^6/u L Hgb (11.5-15.3) g/dL Hct (37.0-47.0) % MCV (81-99) fL MCH (28.0-34.0) pg MCHC (30.0-36.0) g/dL RDW (12.1-15.1) % Plt Count (130-400) 10^3/c mm MPV (7.4-10.4) fL Neut % (Auto) % Lymph % (Auto) % Coffey % (Auto) % Eos % (Auto) % Baso % (Auto) % Neut # (Auto) (1.8-7.7) 10^3/u L Lymph # (Auto) (0.8-4.8) 10^3/u L Coffey # (Auto) (0.2-0.9) 10^3/u L Eos # (Auto) (0.0-0.8) 10^3/u L Baso # (Auto) (0.0-0.1) 10^3/u L Nucleated RBC % (a uto) % Nucleated RBCs # /100WBC Sodium (136-145) mmol/L Potassium (3.5-5.1) mmol/L Chloride (98-107) mmol/L Carbon Dioxide (22-29) mmol/L Anion Gap (5-19) BUN (8-23) mg/dL Creatinine (0.5-0.9) mg/dL GFR Calculation Glucose (65-115) mg/dL Calculated Osmolal ity (285-295) mOsm/k g Lactic Acid (0.5-2.2) mmol/L Calcium (8.5-10.5) mg/dL Troponin T Baselin e (0-10) ng/L Troponin T 120 Min [place] 30.27 H (0-10) ng/L Delta Troponin T 0.27 (0-10) ABS# TSH Cancelled (0.27-4.20) uIU/ mL Urine Color (Yellow) Urine Appearance (CLEAR) Urine pH (5-7) Ur Specific Gravit y (1.005-1.030) Urine Protein (Negative) Urine Glucose (UA) (Normal) Urine Ketones (Negative) Urine Blood (Negative) Urine Nitrate (Negative) Urine Bilirubin (Negative) Urine Urobilinogen (Negative) mg/dL Ur Leukocyte Faye ase (Negative) Imaging Data^: CT Head: Attestation: I personally reviewed and interpreted this imaging study as follows: Radiologist's impression: [address] [address] [address] Scan Report Signed Patient: Vivian Osorio Unit #: [id number] : 1935 Age/Sex: 84 / F ADM Date: 08/10/20 Loc: ER Room/Bed: Attending Dr: Ordering Provider/Ordering MD: Francesco Ibarra DO Date of Service: 08/10/20 Procedure(s): CT head wo con* [id number] Accession Number(s): [id number] Report Number: [id number] PROCEDURE INFORMATION: Exam: CT Head Without Contrast Exam date and time: 08/10/2020 5:51 PM Age: 84 years old Clinical indication: Injury or trauma; Blunt trauma (contusions or hematomas); Dizziness; Injury details: Frequent falls and dizzy x 1year. HX of dementia; Additional info: Fall head TECHNIQUE: Imaging protocol: Computed tomography of the head without contrast. Radiation optimization: All CT scans at this facility use at least one of these dose optimization techniques: automated exposure control; mA and/or kV adjustment per patient size (includes targeted exams where dose is matched to clinical indication); or iterative reconstruction. COMPARISON: No relevant prior studies available. RADIATION DOSE METRICS: Total DLP (mGy-cm): 718.78 FINDINGS: Brain: Moderate diffuse cortical volume loss. Mild hypodensities in supratentorial periventricular and subcortical white matter, consistent with microangiopathy. No intracranial hemorrhage. Cerebral ventricles: No ventriculomegaly. Left choroid plexus cyst. Paranasal sinuses: Visualized sinuses are unremarkable. No fluid levels. Mastoid air cells: Visualized mastoid air cells are well aerated. Vasculature: No hyperdense artery. Bones/joints: Unremarkable. No acute fracture. Soft tissues: Unremarkable. CT/CT head wo con* [id number] IMPRESSION: 1. No acute intracranial abnormality. CXR: Attestation: I personally reviewed and interpreted this imaging study as follows: Radiologist's impression: [address] [address] XRay Report Signed Patient: Vivian Osorio Unit #: [id number] : 1935 Age/Sex: 84 / F ADM Date: 08/10/20 Loc: ER Room/Bed: Attending Dr: Ordering Provider/Ordering MD: Francesco Ibarra DO Date of Service: 08/10/20 Procedure(s): XR chest 1V portable [id number] Accession Number(s): [id number] Report Number: [id number] PROCEDURE INFORMATION: Exam: XR Chest Exam date and time: 08/10/2020 5:52 PM Age: 84 years old Clinical indication: Shortness of breath; Patient HX: Low BP, frequent fall. HX of dementia; Additional info: Dyspnea/cough TECHNIQUE: Imaging protocol: XR of the chest. Views: 1 view. COMPARISON: CR XR chest 1V portable [id number] 01/09/2020 6:20 AM FINDINGS: Lungs: Hyperinflated lungs, most likely COPD. Mild scarring in the lung bases. No consolidation. Pleural spaces: Unremarkable. No pleural effusion. No pneumothorax. Heart/Mediastinum: Mild cardiomegaly. Hiatal hernia. Bones/joints: Unremarkable. XR/XR chest 1V portable [id number] IMPRESSION: No acute findings. EKG Data^: EKG 1: Attestation: I personally reviewed and interpreted this EKG as follows: EKG interpretation date: 08/10/20 EKG interpretation time: 18:32 Interpretation: afib hr 82 st depression in v3-v4 no st elevation qrs 102 qtc 461 EKG 2: Attestation: I personally reviewed and interpreted this EKG as follows: EKG interpretation date: 08/10/20 EKG interpretation time: 20:03 Interpretation: afib hr 76 with no acute changes from previous qrs 100 qtc 429 Discharge Plan Discharge Patient Disposition: Admitted As Inpatient Admit Provider: Margi Oliver Clinical Impression: Hypotension, Weakness Condition: Stable Discharge Diet: Cardiac Discharge Activity: Resume usual activity Coding Level of Care Code ED Ornamental Ironworking Supervisor for Chg Fwd Exam Comprehensive
--- NOTE | 2020-08-10 17:57 | ECG_ITS ---
[facility] Test Date: 2020-08-10 Pat Name: Vivian Osorio Department: Room: Gender: Female Food Adviser: : 1935 Requested By: Francesco Marshall Order Number: [id number] Diego MD: Evelyne Kumari M.D. Measurements Intervals [place] Rate: 82 P: TN: QRS: -13 QRSD: 102 T: -56 QT: 423 QTc: 495 Interpretive Statements ATRIAL FIBRILLATION POSSIBLE RIGHT VENTRICULAR CONDUCTION DELAY [RSR (QR) IN V1/V2] ST DEVIATION AND MODERATE T-WAVE ABNORMALITY, CONSIDER ANTERIOR ISCHEMIA [-0.1+ mV T WAVE IN V3/V4] ST DEVIATION AND MODERATE T-WAVE ABNORMALITY, CONSIDER INFERIOR ISCHEMIA [-0.1+ mV T WAVE IN II/aVF] Compared to ECG 01/07/2020 13:24:01 T-wave abnormality now present Possible ischemia now present Sinus rhythm no longer present Left-axis deviation no longer present ST (T wave) deviation no longer present Electronically Signed On 08-11-2020 0:30:36 CDT by Evelyne Kumari M.D. [id number]
[2020-08-10 18:19] VITALS: BP 105/80; PULSE 76; RESP 22; O2SAT 92
[2020-08-10] MEDS: sodium chloride 0.9% 500 ML 999 ML IV (18:21)
[2020-08-10 19:07] LABS: Add Urine Microscopic? NO; Charge for UA Resulting for Rev
[2020-08-10 19:14] LABS: Bilirubin Urine Neg (Negative); Blood Urine Neg (Negative); Glucose Urine UA Norm (Normal); Ketones Urine Negative (Negative); Leukocyte Esterase Urine Negative (Negative); Nitrate Urine Negative (Negative); Protein Urine Neg (Negative); Urine Appearance Clear (CLEAR); Urine Color Yellow (Yellow); Urobilinogen Urine Norm (Negative); pH Urine 5 (5-7)
[2020-08-10 19:25] VITALS: BP 107/79; PULSE 64; RESP 18; O2SAT 95
[2020-08-10 19:33] LABS: Basophils # 0.1 10^3/uL (0.0-0.1); Basophils % 0.6 %; Eosinophils # 0.2 10^3/uL (0.0-0.8); Eosinophils % 1.5 %; Hematocrit 44.2 % (37.0-47.0); Hemoglobin 14.3 g/dL (11.5-15.3); Lymphocytes # 1.9 10^3/uL (0.8-4.8); Lymphocytes % 16.1 %; Mean Corpuscular HGB Conc 32.4 g/dL (30.0-36.0); Mean Corpuscular Hemoglobin 30.4 pg (28.0-34.0); Mean Platelet Volume 10.8 fL (7.4-10.4); Neutrophils # 8.67 10^3/uL (1.8-7.7); Neutrophils % 73.2 %; Nucleated Red Blood Cells % 0 %; Platelet Count 244 10^3/cmm (130-400); Red Cell Distribution Width 15.9 % (12.1-15.1); White Blood Count 11.9 10^3/uL (4.0-10.0)
[2020-08-10 19:56] LABS: Lactic Sepsis W/Reflex 1.3 mmol/L (0.5-2.2); Troponin(5th) Baseline 30 ng/L (0-10)
--- NOTE | 2020-08-10 19:57 | ECG_ITS ---
[facility] Test Date: 2020-08-10 Pat Name: Vivian Osorio Department: Room: Gender: Female Gusset Maker: : 1935 Requested By: Francesco Marshall Order Number: [id number] Diego MD: Evelyne Kumari M.D. Measurements Intervals [place] Rate: 76 P: IA: QRS: -15 QRSD: 100 T: -42 QT: 398 QTc: 450 Interpretive Statements ATRIAL FIBRILLATION INCOMPLETE RIGHT BUNDLE BRANCH BLOCK [90+ ms QRS DURATION, TERMINAL R IN V1/V2, 40+ ms S IN I/aVL/V4/V5/V6] ST DEVIATION AND MODERATE T-WAVE ABNORMALITY, CONSIDER ANTEROLATERAL ISCHEMIA [-0.1+ mV T WAVE IN V3-V6] Compared to ECG 08/10/2020 18:32:03 Incomplete right bundle-branch block now present T-wave abnormality still present Possible ischemia still present Electronically Signed On 08-11-2020 0:53:45 CDT by Evelyne Kumari M.D. [id number]
[2020-08-10 20:38] LABS: Thyroid Stimulating Hormone 1.57 uIU/mL (0.27-4.20)
[2020-08-10 20:44] LABS: Anion Gap 18.9 (5-19); Blood Urea Nitrogen 45 mg/dL (8-23); Calcium 8.7 mg/dL (8.5-10.5); Carbon Dioxide 31 mmol/L (22-29); Chloride 89 mmol/L (98-107); Glucose 92 mg/dL (65-115); Osmolality Calculated 293 mOsm/kg (285-295); Sodium 136 mmol/L (136-145)
[2020-08-10 20:47] LABS: Potassium 2.9 mmol/L (3.5-5.1)
[2020-08-10 20:55] VITALS: BP 97/59; PULSE 79; RESP 16; O2SAT 96
--- NOTE | 2020-08-10 21:13 | P.HP_ITS ---
Providers/Chief Complaint Primary Care Provider: Esme Vo Chief Complaint: Low BP, History of Present Illness Vivian Osorio is a 84 year old female who carries history of Alzheimer's dementia, hypertension, hypothyroidism, dementia, contracted COVID-19 in December last year presented today with chief complaint of weakness and fall. Patient was using Eliquis after her COVID-19 infection which was discontinued about 2 months ago as per her daughter. Patient is not a good historian she is not complaining of any chest pain shortness of breath however he is able to tell me that she felt weak and fell. She is not endorsing any chest pain, shortness of breath diarrhea dysuria, headache. She is not sure why she is in the hosp ital. I called daughter to get more information. Daughter is stating that for last few days her blood pressure was continuously running soft in low 90s currently Monitoring her blood pressure, she lives in [place] and there is a healthcare worker who checks on her Sunday and , despite her low blood pressure she kept taking her antihypertensive medications. Today she went to primary care physician clinic because of sporadic blood pressure. At the clinic blood pressure was 75/55 mmHg and she was sent to the ER for further evaluation. In the ER she was given 1 L normal saline which improved her blood pressure patient was asymptomatic EKG showing T wave inversion inferior anterolateral leads however these changes are not new as compared to previous EKGs troponin 30 patient is asymptomatic chest x-ray unremarkable, hypokalemia with SANDRA noted, clinically patient looks euvolemic. Of note daughter also endorsed that she has irregular heart rhythm however Eliquis was only used after COVID-19. Review of Systems Const: Reports: chills Eyes: Denies: change in vision ENMT: Denies: throat pain Card: Denies: chest pain Resp: Denies: dyspnea GI: Denies: abdominal pain : Denies: flank pain Musc: Denies: neck pain Skin/Breast: Denies: rash Neuro: Reports: confusion; Denies: headache(s) Psych: Denies: anxiety Endo: Denies: polyuria Prudencio/Lymph: Denies: easy bruising All/Imm: Denies: urticaria Medications/Allergies Home Medications Medication Instructions Recorded Confirmed Last Taken Type cholecalciferol (vitamin D3) 25 25 mcg PO DAILY 08/05/19 05/10/20 Unknown History mcg (1,000 unit) capsule gabapentin 600 mg tablet 600 mg PO DAILY 08/05/19 05/10/20 Unknown History hydrochlorothiazide 12.5 mg tablet 12.5 mg PO DAILY 08/05/19 05/10/20 Unknown History levothyroxine 25 mcg capsule 25 mcg PO DAILY 08/05/19 05/10/20 Unknown History nystatin 100,000 unit/gram topical 1 applic TOPICAL BID 08/05/19 05/10/20 Unknown History cream omeprazole 20 mg capsule,delayed 20 mg PO DAILY 08/05/19 05/10/20 Unknown History release Bystolic 5 mg PO DAILY 01/07/20 05/10/20 Unknown History lisinopril 10 mg PO DAILY 01/07/20 05/10/20 Unknown History albuterol sulfate 1 inh INHALATION 6XD PRN #18 g 01/11/20 05/10/20 Unknown Rx fluticasone propion-salmeterol 1 ea INHALATION BID.RESPIRATORY 01/11/20 05/10/20 Unknown Rx [Advair Diskus] #60 ea acetaminophen 500 mg tablet 500 mg PO TID PRN tab 04/14/20 05/10/20 Unknown History ibuprofen 200 mg tablet 200 mg PO TID PRN tab 04/14/20 05/10/20 Unknown History Allergies Allergy/AdvReac Type Severity Reaction Status Date / Time naproxen [From Naprosyn] Allergy Severe ALGY-Swell Verified 05/10/20 10:52 Lip/Tongue/Throat PFSH Acute PFSH: Medical History (Updated 08/10/20 @ 22:51 by Margi Oliver MD) Cholecystectomy planned Chronic right hip pain Dementia Depression Hip osteoarthritis Hypertension Hypothyroidism Opioid contract exists Polypharmacy RLS (restless legs syndrome) Vitamin D deficiency Surgical History History of hysterectomy Family History Other Cancer Diabetes Hypertension Social History Smoking and tobacco status: never smoked Alcohol intake: never Vitals/I&O/Wt Last Vital Signs Pulse 79 08/10/20 20:55 Resp 16 08/10/20 20:55 BP 97/59 08/10/20 20:55 Pulse Ox 96 08/10/20 20:55 08/10/20 08/10/20 08/10/20 06:59 14:59 22:59 Intake Total 500 / 500 Balance 500 / 500 Weight last 48 hrs Weight 74.843 kg Physical Exam Narrative: EXAM NARRATIVE: Very pleasant cooperative female Appears stated age No signs of dehydration or fluid overload Currently saturating well on room air S1, S2 irregular rhythm, no signs of heart failure Abdomen soft nontender Lower extremity no edema gangrene or ulcer Awake alert oriented x3 GCS 15, memory deficit No strokelike symptoms EOMI, PERRLA No joint swelling or signs of cellulitis Data : 08/10/20 19:25 08/10/20 19:25 A&P Assessment and plan (1) Hypotension: Status: Acute (2) Weakness: Status: Acute Additional A&P Information Hypotension related to polypharmacy, she takes lisinopril, hydrochlorothiazide and Bystolic however she is not sure about her medications nor is her daughter, Hold antihypertensive regimen, keep her on normal saline maintenance rate ov ernight Check TSH Irregular heart rhythm without significant delta troponin (rhythm seems to be chronic as per daughter), EKG looks like atrial flutter however heart rate is in 70 to 80s, I do not think irregular heart rhythm is contributing towards her hypotension, does not look fluid overloaded or dehydrated, Not a candidate of anticoagulation due to recurrent falls 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
[2020-08-10 22:23] LABS: Troponin 5 2HR 30.27 ng/L (0-10); Troponin 5 2HR Delta 0.27 ABS# (0-10)
[2020-08-10 22:29] VITALS: BP 93/70; PULSE 76; RESP 13; O2SAT 94
[2020-08-10 23:51] VITALS: BP 111/79; PULSE 85; RESP 22; O2SAT 93
--- NOTE | 2020-08-10 23:57 | ECG_ITS ---
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 Measurements Intervals [place] Rate: 101 P: MS: QRS: -24 QRSD: 92 T: -79 QT: 337 QTc: 439 Interpretive Statements ATRIAL FIBRILLATION WITH RAPID VENTRICULAR RESPONSE BORDERLINE LEFT AXIS DEVIATION [QRS AXIS < -20] POSSIBLE RIGHT VENTRICULAR CONDUCTION DELAY [RSR (QR) IN V1/V2] ST DEVIATION AND MODERATE T-WAVE ABNORMALITY, CONSIDER ANTEROLATERAL ISCHEMIA ST DEVIATION AND MODERATE T-WAVE ABNORMALITY, CONSIDER INFERIOR ISCHEMIA Compared to ECG 08/10/2020 20:03:27 Incomplete right bundle-branch block no longer present T-wave abnormality still present Possible ischemia still present Electronically Signed On 08-12-2020 7:22:40 CDT by Marylin Magana M.D. [id number]
[2020-08-11] VITALS (11 sets, daily range): BP systolic 97–161; BP diastolic 61–92; PULSE 65–125; RESP 12–18; TEMP 36–36.7; O2SAT 92–97
--- NOTE | 2020-08-11 | XR_ITS ---
WS: [id number] AP pelvis, 2 views of each hip, 08/11/2020 Clinical Data: fall Comparison: None. Findings: There is osteoarthritic change of both hips more on the left than the right. There is sclerosis and n arrowing of the left hip there is an acetabular lip on the right. The SI joints and pubic symphysis a re unremarkable. No pelvic fractures are seen. No hip fractures are noted. XR/XR hip BI m 5V wo/w pel* [id number] Impression: 1. Negative for pelvic or hip fractures. 2. Osteoarthritis of both hips worse on the left than the right.
[2020-08-11 02:46] LABS: Blood Urea Nitrogen 42 mg/dL (8-23); Calcium 8.7 mg/dL (8.5-10.5); Carbon Dioxide 32 mmol/L (22-29); Chloride 90 mmol/L (98-107); Glucose 116 mg/dL (65-115); Magnesium 2.1 mg/dL (1.7-2.3); Osmolality Calculated 291 mOsm/kg (285-295); Sodium 135 mmol/L (136-145)
[2020-08-11 02:52] LABS: Anion Gap 15.6 (5-19)
[2020-08-11 02:54] LABS: Potassium 2.6 mmol/L (3.5-5.1)
[2020-08-11 03:48] LABS: Troponin 5 6HR 29.67 ng/L (0-10)
[2020-08-11 03:52] LABS: Troponin 5 6HR Delta -0.33 ng/L (0-12)
[2020-08-11] MEDS: potassium chloride ER 20 mEq Tablet 40 MEQ PO (04:10)
[2020-08-11] MEDS: heparin 5,000 unit/mL INJ 1 mL 5000 UNIT SUBCUT ×2 (04:11→08:10)
[2020-08-11] MEDS: lidocaine 1% 5 ML in potassium chloride premix 100 ML 25 ML IV (04:11)
[2020-08-11] MEDS: sodium chloride 0.9% 1,000 ML 75 ML IV (04:11)
[2020-08-11] MEDS: levothyroxine 25 mcg Tablet PO (08:10)
[2020-08-11] MEDS: pantoprazole DR 40 mg Tablet PO (08:10)
--- NOTE | 2020-08-11 09:52 | PC.CHAP ---
Pastoral Care Encounter/Spiritual Assessment Type of Contact [] Declined tennis ball coverer hand visit [] Patient/Family/Request visit [] Outpatient visit [] Follow-up visit [] Physician referral [] Code/Alert [x] Routine visit [] Staff referral [] Actively dying [] Patient sleeping [] Family support [] [] Out of room [] Palliative care [] [] Receiving care in room [] Pre-surgical visit [] Trauma [] Long length of stay [] ICU visit [] Other: Relational/Emotional Strength [x] Patient feels connected with others/family/visitors/staff [] Distress [] Loneliness/isolation [] Abandonment Spirituality of Patient [x] Person of [place] [] Attends Restoration of their [place] [x] Believes in Prayer [] Reads Bible or Jainism materials [] There are Spiritual issues to be addressed Rotor Plate Washer Interventions [x] Prayer [x] Active listening [] Non-anxious presence [] Spiritual/emotional support [] Crisis/trauma care [] Spiritual counseling [] Bereavement support [] Provided bereavement packet [] Provided Bible/devotional materials [] Provided toy/stuffed animal, coloring book to patient or family member [] Provided Communion [] Anointing/[place] [] Salvation [x] Completed spiritual assessment [] Other: Impact on Illness or Injury [] Angry [] Fearful [] Anxious [] Often cries [] Exhaustion [] Unable to work [] Unable to attend roman catholic [] Unable to walk/stand [] Unable to read [] Unable to drive [] Unable to eat/drink [] Unable to sleep [] Unable to be with family [] Patient intubated [] Other: Summary patient feeling much better Time spent with patient 10 min
[2020-08-11 09:58] LABS: Platelet Count 257 10^3/cmm (130-400)
[2020-08-11 10:15] LABS: NT Pro B Type Natriuretic Pept 1658 pg/mL (0-450)
--- NOTE | 2020-08-11 14:13 | XR_ITS ---
WS: [id number] AP pelvis, 2 views of each hip, 08/11/2020 Clinical Data: fall Comparison: None. Findings: There is osteoarthritic change of both hips more on the left than the right. There is sclerosis and n arrowing of the left hip there is an acetabular lip on the right. The SI joints and pubic symphysis a re unremarkable. No pelvic fractures are seen. No hip fractures are noted.
--- NOTE | 2020-08-11 14:14 | US_ITS ---
WS: [id number] ULTRASOUND RENAL TECHNIQUE: Ultrasound examination of both kidneys. CLINICAL INFORMATION: jade COMPARISON: None. FINDINGS: RIGHT: Right kidney is normal in size and appearance. Echogenicity: Normal. Cortical thickness: 0.9 cm; Normal. Hydronephrosis: None. Perinephric fluid: None. Right kidney measures: 10.6 cm x 5.0 cm x 4.4 cm. LEFT: Lower pole renal cyst measuring 4.8 x 4.3 x 3.8 cm with a simple appearance. Left kidney is normal in size and appearance. Echogenicity: Normal. Cortical thickness: 0.9 cm; Normal. Hydronephrosis: None. Perinephric fluid: None. Left kidney measures: 11.2 cm x 6.8 cm x 4.8 cm. Normal visualized aorta. Bladder is partially decompressed measuring 67 cc US/US renal BI* [id number] IMPRESSION: 1. No hydronephrosis in either kidney. 2. Bladder is partially decompressed and normal in appearance. 3. Left lower pole renal cyst measuring 4.8 x 4.3 x 3.8 cm with a simple appea meli.
--- NOTE | 2020-08-11 14:20 | USCV_ITS ---
Vivian Osorio Age: 84 Gender: F : 1935 Exam Date: 08/11/2020 16:03 Ordering Phys: Guillermo Mendes MD Technologist: Gina Solis [place] [facility] [place]: AMS Risk Factors: Previous Vascular Surgery: Right Brachial BP: / Left Brachial BP: / Right Left Velocity (cm/s) Spectral Plaque Velocity (cm/s) Spectral Plaque Syst/Diast Broadening Syst/Diast Broadening 47.90/ 14.60 Prox CCA 0.00 / 11.60 58.10/ 11.10 Mid CCA 63.90 / 15.40 51.30/ 13.70 Distal CCA 62.80 / 20.90 54.40/ 19.40 Prox ICA 37.30 / 14.00 73.70/ 22.30 Mid ICA 48.70 / 16.20 79.80/ 33.40 Distal ICA 86.30 / 29.80 99.20 ECA 52.90 1.37 ICA/CCA 1.35 Antegrade Vertebral Antegrade 38.10/ 12.40 cm/s 29.20/ 11.80 cm/s Tri Subclavian Tri 117.6 77.10 0 CONCLUSIONS Right ICA stenosis <50%. Left ICA stenosis <50%. Normal antegrade Doppler flow noted in the right vertebral artery. Normal antegrade Doppler flow noted in the left vertebral artery. Ryan Rivera MD (Electronically Signed) Final Date: 11 August 2020 17:01 S
[2020-08-11 15:40] LABS: Anion Gap 14.6 (5-19); Blood Urea Nitrogen 34 mg/dL (8-23); C Reactive Protein 82.1 mg/L (0.0-4.9); Calcium 8.8 mg/dL (8.5-10.5); Carbon Dioxide 31 mmol/L (22-29); Chloride 98 mmol/L (98-107); Glucose 113 mg/dL (65-115); Lactate (Lactic Acid level) 2.1 mmol/L (0.5-2.2); Osmolality Calculated 298 mOsm/kg (285-295); Potassium 3.6 mmol/L (3.5-5.1); Sodium 140 mmol/L (136-145)
[2020-08-11 15:47] LABS: Procalcitonin 0.06 ng/mL (0-0.5)
--- NOTE | 2020-08-11 16:49 | PM.PN ---
Subjective Subjective: Interval history: This morning patient was examined, she does not know why she is here in the hospital, tells me that she has fallen frequently, her back is hurting her, but beyond that she does not really have any complaints, she is alert to person, to place, not to the month, but is oriented to the year, knows Sophia is a president, she follows all commands, does have a slight right facial droop, no other focal neurologic deficits, she she does have Alzheimer's dementia I spoke to patient's daughter this afternoon, she tells me that the reason that they had her come over the hospital is due to fluctuations of her blood pressure, she tells me that her blood pressures have quite low recently, as low as 60/40, she has not had any fevers, no cough, no dysuria complaints, she has had falls, her EKG did show atrial fibrillation, she is on Eliquis, but daughter is not sure why since she is on anticoagulation, Vitals/I&O/Wt Last Vital Signs Temp 96.9 F L 08/11/20 12:00 Pulse 125 H 08/11/20 12:00 Resp 12 08/11/20 12:00 BP 124/80 08/11/20 12:00 Pulse Ox 95 08/11/20 12:00 08/11/20 08/11/20 08/11/20 06:59 14:59 22:59 Intake Total 100 / 600 827.5 / 827.5 Output Total 600 / 600 Balance -500 / 0 827.5 / 827.5 Weight last 48 hrs Weight 74.843 kg Physical Exam Const: COMMON NORMALS: no acute distress and alert ORIENTATION/CONSCIOUSNESS: Yes awake, Yes oriented to person, Yes oriented to place and Yes confused; not oriented to time Resp: COMMON NORMALS: normal respiratory effort, No retractions, No use of accessory muscles and clear to auscultation bilaterally AUSCULTATION: clear to auscultation bilaterally Cardio: COMMON NORMALS: regular rate, regular rhythm, S1 normal heart sound present and S2 normal heart sound present RATE: regular rate RHYTHM: regular rhythm HEART SOUNDS: S1 normal heart sound present and S2 normal heart sound present GI: COMMON NORMALS: Normal to inspection, nondistended, normoactive bowel sounds present, Soft to palpation and non-tender PALPATION: Yes Soft to palpation Extremity: COMMON NORMALS: no pedal edema Neuro: COMMON NORMALS: CN's II-XII intact bilaterally, moves all extremities and no focal motor deficits SENSORIUM/ORIENTATION: Yes alert, Yes oriented to person, Yes oriented to place and No oriented to time COORDINATION/BALANCE: [id number] test normal SPEECH: speech normal COORDINATION: [id number]-[id number] test normal Data : 08/11/20 01:48 08/11/20 15:10 Micro: Microbiology 08/11/20 15:13 Blood Culture - Preliminary Blood SPECIMEN COLLECTED 08/11/20 15:10 Blood Culture - Preliminary Blood SPECIMEN COLLECTED A&P Assessment and plan (1) Hypotension: Status: Acute (2) Weakness: Status: Acute Additional A&P Information Hypotension related to polypharmacy, she takes lisinopril, hydrochlorothiazide and Bystolic however she is not sure about her medications nor is her daughter, Hold antihypertensive regimen, keep her on normal saline maintenance rate overnight Perform orthostatic vitals Cardiac echocardiogram, carotid artery ultrasound, telemetry monitoring UA no evidence of UTI, chest x-ray no focal pneumonia Falls, hip x-ray no acute fracture, PT OT Atrial fibrillation CT of the head did not show any acute stroke, does have a slight drooping on the right corner of her mouth, but I think that that just might be a normal variant, no other focal neurologic deficits, neurologically intact, thus I feel that she the likelihood of an embolic event is fairly unlikely Daughter is not sure if she truly has a history of A. 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
[2020-08-11] MEDS: heparin 5,000 unit/mL INJ 1 mL IV (16:54)
[2020-08-11] MEDS: heparin drip 25,000 UNIT/500 ML PREMIX 21 UNIT IV (16:54)
[2020-08-11] MEDS: acetaminophen 500 mg Tablet PO (17:01)
[2020-08-11] MEDS: sodium chloride 0.9% 1,000 ML 50 ML IV (18:05)
[2020-08-11 23:40] LABS: Partial Thromboplastin Time 212.9 SECONDS (23.9-36.7)
[2020-08-12] MEDS: ropinirole 0.25 mg Tablet PO (00:22)
[2020-08-12 03:09] LABS: Basophils # 0.1 10^3/uL (0.0-0.1); Basophils % 0.5 %; Eosinophils # 0.3 10^3/uL (0.0-0.8); Hemoglobin 13.6 g/dL (11.5-15.3); Lymphocytes # 1.6 10^3/uL (0.8-4.8); Lymphocytes % 17.4 %; Mean Corpuscular HGB Conc 32.4 g/dL (30.0-36.0); Mean Corpuscular Hemoglobin 30.4 pg (28.0-34.0); Mean Corpuscular Volume 93.8 fL (81-99); Mean Platelet Volume 10.8 fL (7.4-10.4); Monocytes # 0.7 10^3/uL (0.2-0.9); Monocytes % 7.1 %; Neutrophils # 6.72 10^3/uL (1.8-7.7); Neutrophils % 71.6 %; Nucleated Red Blood Cells % 0 %; Platelet Count 214 10^3/cmm (130-400); Red Blood Count 4.48 10^6/uL (4.1-5.3); Red Cell Distribution Width 15.9 % (12.1-15.1); White Blood Count 9.4 10^3/uL (4.0-10.0)
[2020-08-12 03:21] LABS: Partial Thromboplastin Time 64.5 SECONDS (23.9-36.7)
[2020-08-12 03:29] LABS: Alanine Aminotransferase 8 U/L (0-33); Alkaline Phosphatase 150 IU/L (35-105); Anion Gap 13.2 (5-19); Aspartate Amino Transferase 13 U/L (0-32); Blood Urea Nitrogen 26 mg/dL (8-23); Calcium 8.6 mg/dL (8.5-10.5); Carbon Dioxide 28 mmol/L (22-29); Chloride 102 mmol/L (98-107); Globulin 3.4 g/dL (1.3-4.6); Glucose 111 mg/dL (65-115); Osmolality Calculated 295 mOsm/kg (285-295); Phosphorus 2.6 mg/dL (2.5-4.5); Potassium 3.2 mmol/L (3.5-5.1); Sodium 140 mmol/L (136-145); Total Bilirubin 0.6 mg/dL (0.15-1.2); Total Protein 6.4 g/dL (6.6-8.7)
[2020-08-12 04:00] VITALS: BP 122/64; PULSE 65; RESP 16; TEMP 36.8; O2SAT 96
--- NOTE | 2020-08-12 05:00 | USCV_ITS ---
Vivian Osorio Age: 84 Gender: F : 1935 Exam Date: 08/12/2020 06:32 Ordering Phys: Guillermo Mendes MD Technologist: Gina Solis [place] [facility] [place]: WEAKNESS, NEW ONSET AFIB BP: 122 / 64 HR: 101 Rhythm: Atrial fibrillation Technical Quality: Adequate MEASUREMENTS (Male / Female) Normal Values 2D ECHO LV Diastolic Diameter PLAX 4.2 cm 4.2 - 5.9 / 3.9 - 5.3 cm LV Systolic Diameter PLAX 3.4 cm IVS Diastolic Thickness 1.4 cm 0.6 - 1.0 / 0.6 - 0.9 cm IVS Systolic Thickness 1.7 cm LVPW Diastolic Thickness 1.7 cm 0.6 - 1.0 / 0.6 - 0.9 cm LVPW Systolic Thickness 2.2 cm LVOT Diameter 2.0 cm LV Ejection Fraction 2D Teich 42.0 % LV Ejection Fraction MOD 2C 40.5 % LV Ejection Fraction 2C AL 39.3 % LA Diameter 2.9 cm LA Width 2.9 cm LA Height 3.5 cm RA Width 3.2 cm RA Height 3.6 cm Aorta at Sinotubular Diameter 2.9 cm M-MODE LV Diastolic Diameter MM 2.9 cm 4.2 - 5.9 / 3.9 - 5.3 cm LV Systolic Diameter MM 2.2 cm LV Ejection Fraction MM Teich 49.6 % IVS Diastolic Thickness MM 0.9 cm 0.6 - 1.0 / 0.6 - 0.9 cm IVS Systolic Thickness MM 1.3 cm LVPW Diastolic Thickness MM 1.0 cm 0.6 - 1.0 / 0.6 - 0.9 cm LVPW Systolic Thickness MM 0.9 cm Aortic Annulus Diameter 2.0 cm LA Ao Ratio MM 1.2 MV E Point Septal Separation 0.8 cm DOPPLER AV Peak Velocity 108.0 cm/s LVOT Peak Velocity 83.0 cm/s AV Area Cont Eq vti 2.4 cm squared AV Area Cont Eq pk 2.4 cm squared MV Area PHT 3.5 cm squared MV E' Velocity 95.0 cm/s TR Peak Velocity 244.1 cm/s TR Peak Gradient 23.8 mmHg TR Mean Velocity 274.3 cm/s TR Mean Gradient 30.8 mmHg TR Velocity Time Integral 110.9 cm TV Peak E Velocity 54.0 cm/s Right Atrial Pressure 3.0 mmHg Pulmonary Artery Systolic Pressu 26.8 mmHg PV Peak Velocity 95.0 cm/s RV Acceleration Time 0.1 s RV Ejection Time 0.3 s RV AcT/ET 0.2 FINDINGS Left Ventricle Normal left ventricular size. LVsystolic function is mildly reduced with EF of 40-45%. Mild global hypokinesis is noted. Diastolic function cannot be determined because of atrial fibrillation. Right Ventricle The right ventricle is normal in size and function. Right Atrium The right atrium is normal in size. Left Atrium The left atrium is normal in size. Mitral Valve Structurally normal mitral valve without significant stenosis or prolapse. There is mild mitral regurgitation. Aortic Valve Thickened aortic valve without significant sclerosis or stenosis. There is no aortic regurgitation. Tricuspid Valve Structurally normal tricuspid valve without significant stenosis. Mild tricuspid regurgitation. RVSP is 40 to 45 mmHg. This is consistent with mild pulmonary hypertension. Pulmonic Valve Structurally normal pulmonic valve without significant stenosis. There is no pulmonic regurgitation. Pericardium Normal pericardium without effusion. Aorta Normal ascending aorta dimension. CONCLUSIONS LV systolic function is mildly reduced with EF 40 to 45%. Mild mitral regurgitation is seen. Mild pulmonary hypertension Compared to prior echocardiogram from 01/02/2020, LV systolic function is mildly decreased Anthony Orlando MD (Electronically Signed) Final Date: 12 August 2020 12:38 S
[2020-08-12 06:00] VITALS: BP 105/74; BP 111/73; BP 97/67; PULSE 78; PULSE 90; PULSE 91; PULSE 92
[2020-08-12 08:00] VITALS: BP 129/91; PULSE 101; RESP 20; TEMP 36.4; O2SAT 94
--- NOTE | 2020-08-12 10:23 | PC.NURSE ---
spoke to [facility] in lab to confirm timed PTT lab will be done.
[2020-08-12] MEDS: levothyroxine 25 mcg Tablet PO (10:25)
[2020-08-12] MEDS: pantoprazole DR 40 mg Tablet PO (10:26)
--- NOTE | 2020-08-12 11:06 | PC.NURSE ---
Called [facility] in lab and asked about PTT. Stated that someone should be up here drawing it.
--- NOTE | 2020-08-12 11:08 | PC.CHAP ---
Pastoral Care Encounter/Spiritual Assessment Type of Contact [] Declined chute tender visit [] Patient/Family/Request visit [] Outpatient visit [] Follow-up visit [] Physician referral [] Code/Alert [x] Routine visit [] Staff referral [] Actively dying [] Patient sleeping [] Family support [] [] Out of room [] Palliative care [] [x] Receiving care in room [] Pre-surgical visit [] Trauma [] Long length of stay [] ICU visit [] Other: Relational/Emotional Strength [x] Patient feels connected with others/family/visitors/staff [] Distress [] Loneliness/isolation [] Abandonment Spirituality of Patient [x] Person of [place] [] Attends Pentecostal of their [place] [x] Believes in Prayer [] Reads Bible or Tenriism materials [] There are Spiritual issues to be addressed Kier Drier Interventions [x] Prayer [x] Active listening [x] Non-anxious presence [x] Spiritual/emotional support [] Crisis/trauma care [x] Spiritual counseling [] Bereavement support [] Provided bereavement packet [] Provided Bible/devotional materials [] Provided toy/stuffed animal, coloring book to patient or family member [] Provided Communion [] Anointing/[place] [] Salvation [x] Completed spiritual assessment [] Other: Impact on Illness or Injury [] Angry [] Fearful [x] Anxious [] Often cries [] Exhaustion [x] Unable to work [] Unable to attend synagogue [] Unable to walk/stand [] Unable to read [] Unable to drive [] Unable to eat/drink [] Unable to sleep [] Unable to be with family [] Patient intubated [] Other: Summary lower back feels good has a good attitude and is going home Time spent with patient 10 mins
[2020-08-12] MEDS: potassium chloride ER 20 mEq Tablet 40 MEQ PO (11:27)
[2020-08-12 11:33] LABS: Partial Thromboplastin Time 42.1 SECONDS (23.9-36.7)
[2020-08-12 11:44] VITALS: BP 134/93; PULSE 90; RESP 17; TEMP 36.6; O2SAT 92
[2020-08-12] MEDS: heparin 5,000 unit/mL INJ 1 mL IV (11:56)
--- NOTE | 2020-08-12 12:30 | PC.OT ---
OT SCREEN COMPLETED. PATIENT DEMONSTRATED ABILITY TO TOILET INDEPENDENTLY; NO ADL DEFICITS NOTED. NO FURTHER SKILLED OT REQUIRED AT THIS TIME.
--- NOTE | 2020-08-12 13:43 | PM.DCS ---
Discharge Providers Date of Admission: 08/11/20 00:29 Date of Discharge: August 12, 2020 Attending Provider at Admission: Margi Oliver MD Attending Provider at Discharge: Guillermo Mendes MD Primary Care Provider: Esme Vo Diagnoses at Discharge Discharge Diagnosis (1) Hypotension: Status: Acute (2) Weakness: Status: Acute Reason for Visit Reason for Visit: Low BP, Hospital Course Hospital Course This is a 84-year-old female with a past medical history of Alzheimer's dementia, hypertension, hypothyroidism, recent history of COVID-19 on prolonged course of Eliquis stopped 2 weeks ago, history of falls, who presents to [facility] due to weakness, fall, low blood pressures Patient was a poor historian, alert to person, to place, to the year, to the month, she knew who the president was, but does not know why she was here in the hospital, I obtained a significant portion of the history from patient's daughter, she tells me that patient has been suffering low blood pressures for the last few weeks, as low as as 70s over 40s, no fevers, no cough, no chest pain, no shortness of breath, due to falls, her Eliquis was stopped 2 weeks ago by her primary care, and recently her blood pressure medications also were stopped Patient was admitted to [facility] for hypotension secondary to polypharmacy, dehydration. Her lisinopril, hydrochlorothiazide, Bystolic were stopped. She received IV hydration, clinically monitored. Chest x-ray no focal pneumonia. UA no evidence of UTI. She did not have significant evidence of orthostatic hypotension. Patient's blood pressure is improved, she is a bit on the hypertensive side, systolics greater than 140, diastolic greater than 80, which is reasonable given her age. On discharge I have stopped lisinopril, hydrochlorothiazide, Bystolic. She was placed on Cardizem for below. Follow-up with primary care provider this week for recheck blood pressure For falls, she received inpatient physical therapy, hip x-ray no acute fracture Carotid artery ultrasound no hemodynamically significant stenosis Patient had new onset A. fib during her hospitalization, on admission her heart rates were 80s to 90s A. fib, CT of the head did not show any acute stroke, recently her Eliquis was stopped due to falls, but was on Eliquis due to COVID-19 and was on a prolonged course due to concerns for immobility, echocardiogram showed an EF of 40 to 45%, compared to echocardiogram 01/02/2020, LV function had decreased. No complaints of chest pain, no complaints of shortness of breath. Patient was discharged on Cardizem 60 every 12 hours for rhythm control. In terms of her anticoagulation, I had a discussion with patient about anticoagulation, she seemed to have reasonable understanding of the risks associate with anticoagulation including bleeding and falls. But she understood also the benefits including decreasing the stroke risk. After discussion the risk and benefits, she voiced understanding, all questions answered, declined anticoagulation for now. She tells me that she wants to talk to her niece who is a physician in [place] and her primary care physician before reinitiating anticoagulation. We will have patient follow-up with cardiology as outpatient given A. fib, and decreased LV function. Decline in LV function can be from A. fib, but cannot rule out underlying cardiac etiology, continue aspirin, statin, follow-up with cardiology as outpatient. Physical Exam Const: COMMON NORMALS: no acute distress and patient oriented x3 Resp: COMMON NORMALS: normal respiratory effort, No retractions, No use of accessory muscles and clear to auscultation bilaterally AUSCULTATION: clear to auscultation bilaterally Cardio: COMMON NORMALS: regular rate, regular rhythm, S1 normal heart sound present and S2 normal heart sound present RATE: regular rate RHYTHM: regular rhythm HEART SOUNDS: S1 normal heart sound present and S2 normal heart sound present GI: COMMON NORMALS: Normal to inspection, nondistended, normoactive bowel sounds present, Soft to palpation and non-tender PALPATION: Yes Soft to palpation Extremity: COMMON NORMALS: no pedal edema Neuro: COMMON NORMALS: patient oriented x3 Psych: COMMON NORMALS: mental status grossly normal Discharge Data Data Completed and Pending: Completed Studies During Hospitalization Category Date Time Status CT head wo con* [id number] Stat Cat Scan 08/10/20 17:51 Completed XR chest 1V cecil ble [id number] Stat Exams 08/10/20 17:52 Completed XR hip BI m 5V wo /w pel* [id number] Rout ine Exams 08/11/20 Completed CV carotid duplex BI* [id number] Routine Ultrasound 08/11/20 14:20 Completed CV. echo complete * [id number] Routine Ultrasound 08/12/20 05:00 Completed US renal BI* [id number] Routine Ultrasound 08/11/20 14:14 Completed Pending at discharge Category Date Time Status Blood Culture Sta t Lab 08/11/20 15:13 Results Complete Blood Co unt w/Auto AM LABS Lab 08/13/20 04:00 Ordered Complete Blood Co unt w/Auto AM LABS Lab 08/14/20 04:00 Ordered Comprehensive Met abolic Panel AM LA BS Lab 08/13/20 04:00 Ordered Comprehensive Met abolic Panel AM LA BS Lab 08/14/20 04:00 Ordered Magnesium AM LABS Lab 08/13/20 04:00 Ordered Magnesium AM LABS Lab 08/14/20 04:00 Ordered PTT [Partial Thro mboplastin Time] T imed Lab 08/12/20 17:50 Ordered Phosphorus AM LAB S Lab 08/13/20 04:00 Ordered Phosphorus AM LAB S Lab 08/14/20 04:00 Ordered Platelet Count Q2 D Lab 08/13/20 04:00 Ordered Platelet Count Q2 D Lab 08/15/20 04:00 Ordered Labs from last 24 hours 08/12/20 08/12/20 08/12/20 10:52 03:02 03:02 WBC RBC Hgb Hct MCV MCH MCHC RDW Plt Count MPV Neut % (Auto) Lymph % (Auto) Sherman % (Auto) Eos % (Auto) Baso % (Auto) Neut # (Auto) Lymph # (Auto) Sherman # (Auto) Eos # (Auto) Baso # (Auto) Nucleated RBC % (a uto) Nucleated RBCs # APTT 42.1 H 64.5 H D Sodium 140 Potassium 3.2 L Chloride 102 Carbon Dioxide 28 Anion Gap 13.2 BUN 26 H Creatinine 0.9 GFR Calculation Not Reportable Glucose 111 Calculated Osmolal ity 295 Lactate Calcium 8.6 Phosphorus 2.6 Magnesium 2.0 Total Bilirubin 0.6 AST 13 ALT 8 Alkaline Phosphata se 150 H C-Reactive Protein Total Protein 6.4 L Albumin 3.0 L Globulin 3.4 Procalcitonin 08/12/20 08/11/20 08/11/20 03:02 23:03 15:10 WBC 9.4 RBC 4.48 Hgb 13.6 Hct 42.0 MCV 93.8 MCH 30.4 MCHC 32.4 RDW 15.9 H Plt Count 214 MPV 10.8 H Neut % (Auto) 71.6 Lymph % (Auto) 17.4 Sherman % (Auto) 7.1 Eos % (Auto) 3.0 Baso % (Auto) 0.5 Neut # (Auto) 6.72 Lymph # (Auto) 1.6 Sherman # (Auto) 0.7 Eos # (Auto) 0.3 Baso # (Auto) 0.1 Nucleated RBC % (a uto) 0 Nucleated RBCs # 0.0 APTT 212.9 H* Sodium Potassium Chloride Carbon Dioxide Anion Gap BUN Creatinine GFR Calculation Glucose Calculated Osmolal ity Lactate 2.1 Calcium Phosphorus Magnesium Total Bilirubin AST ALT Alkaline Phosphata se C-Reactive Protein Total Protein Albumin Globulin Procalcitonin 08/11/20 15:10 WBC RBC Hgb Hct MCV MCH MCHC RDW Plt Count MPV Neut % (Auto) Lymph % (Auto) Sherman % (Auto) Eos % (Auto) Baso % (Auto) Neut # (Auto) Lymph # (Auto) Sherman # (Auto) Eos # (Auto) Baso # (Auto) Nucleated RBC % (a uto) Nucleated RBCs # APTT Sodium 140 Potassium 3.6 Chloride 98 Carbon Dioxide 31 H Anion Gap 14.6 BUN 34 H Creatinine 1.2 H GFR Calculation Not Reportable Glucose 113 Calculated Osmolal ity 298 H Lactate Calcium 8.8 Phosphorus Magnesium Total Bilirubin AST ALT Alkaline Phosphata se C-Reactive Protein 82.1 H Total Protein Albumin Globulin Procalcitonin 0.06 Vitals: Last Vital Signs Temp 97.9 F 08/12/20 11:44 Pulse 90 08/12/20 11:44 Resp 17 08/12/20 11:44 BP 134/93 08/12/20 11:44 Pulse Ox 92 08/12/20 11:44 Discharge Plan Discharge Patient Disposition: Home Condition: Stable Prescriptions: New diltiazem HCl [Cardizem] 60 mg tablet 60 mg PO Q12H 30 Days Qty: 60 RF: 0 Continued acetaminophen [Tylenol Extra Strength] 500 mg tablet 500 mg PO TID PRN (Reason: PAIN/HEADACHE) RF: 0 omeprazole 20 mg capsule,delayed release(DR/EC) 20 mg PO DAILY@0800 RF: 0 cholecalciferol (vitamin D3) 25 mcg (1,000 unit) capsule 25 mcg PO DAILY@0800 RF: 0 levothyroxine 25 mcg capsule 25 mcg PO DAILY@0800 RF: 0 gabapentin 600 mg tablet See Rx Instructions .ROUTE .COMPLEX RF: 0 Aspir-81 81 mg Tablet,Delayed Release (Dr/Ec) 81 mg PO DAILY@0800 RF: 0 duloxetine 30 mg capsule,delayed release(DR/EC) 30 mg PO DAILY@0800 RF: 0 Vitamin B-12 1 tab PO DAILY@0800 RF: 0 turmeric 1 tab PO DAILY@0800 RF: 0 Held Eliquis 2.5 mg tablet 2.5 mg PO BID@0800,1999 RF: 0 Hold Instructions: Resume on 08/26/20. HOLD UNTIL YOU SEPAK TO PRIMARY CARE AND PHYSICIAN TIM IN [place] Discontinued hydrochlorothiazide 12.5 mg tablet 12.5 mg PO DAILY@0800 RF: 0 furosemide 40 mg tablet 40 mg PO DAILY@0800 RF: 0 Bystolic 5 mg tablet 5 mg PO DAILY@0800 RF: 0 Discharge Orders: Discharge Order (Routine); Ordered 08/12/20 Ordered By: Guillermo Mendes [facility]errals: [facility] [Outside] Marylin Magana MD [Physician] - 1 week Esme Vo [Primary Care Provider] - Patient Instructions: Opioid Safety Activity Restrictions/Additional Instructions: -If you have any strokelike symptoms please call 911 -Please take Cardizem as prescribed, if you feel lightheaded, or dizzy please stop taking the medication -Please hydrate well -Follow-up with primary care in 1 week -Follow-up with cardiology Discharge Attestations Time Spent in Discharge Care*: greater than 30 min Quality Metrics Clinical Quality Measures During this hospital stay, did patient experience: None Coding Level of Care Code Acute g AXEL note Diagnoses Hypotension I95.9 Weakness R53.1
[2020-08-12 13:45] VITALS: BP 147/91; BP 149/93; BP 152/83; PULSE 76; PULSE 82; PULSE 84
[2020-08-12 16:51] VITALS: BP 134/93; PULSE 90; RESP 17; TEMP 36.6; O2SAT 92
--- NOTE | 2020-08-12 16:52 | PC.NURSE ---
1545 patient and personal insurance advisor verbalized understading of discharge instructions, home medications, and follow up appointments.
== END 2020-08-12 15:45 | disposition home or self-care (01) ==
LOC: ER 22:50 → ER IP 08-11 06:14 → MEDSURG 08-11 06:14
PROVIDERS: Family Medicine; Admitting Provider Internal Medicine; Emergency Provider Emergency Medicine; PCP Nurse Practitioner Family; Visit Provider Family Medicine
DX: I95.9 Hypotension, unspecified (principal); R53.1 Weakness; G30.9 Alzheimer's disease, unspecified; F02.80 Dementia in other diseases classified elsewhere, unspecified severity, without behavioral disturbance, psychotic disturbance, mood disturbance, and anxiety; I10 Essential (primary) hypertension; E03.9 Hypothyroidism, unspecified; Z86.16 Personal history of COVID-19; Z79.01 Long term (current) use of anticoagulants; N17.9 Acute kidney failure, unspecified; E87.6 Hypokalemia; I65.23 Occlusion and stenosis of bilateral carotid arteries
CPT/HCPCS: 36415; 70450; 71045; 73521; 73523; 76770; 80048; 80053; 81003; 83605; 83735; 83880; 84100; 84145; 84443; 84484; 85025; 85049; 85730; 86140; 87040; 93005; 93306; 93880; 96361; 96365; 96366; 96372; 97161; 97530; 99285; G0378; J1644; J3480; J7030; J7040

== ENCOUNTER 2020-10-20 13:32 | Outpatient (CLI) | payer MEDICARE, SELFPAY ==
--- NOTE | 2020-10-20 13:57 | CT_ITS ---
WS: [id number] CT ABDOMEN AND PELVIS NONCONTRAST HISTORY: LOWER ABDOMINAL/PELVIC PAIN, URINARY TRACT INFECTION TECHNIQUE: Imaging performed through the abdomen and pelvis. Coronal and sagittal reformats are submi tted. All CT scans at [facility] use at least one of these dose optimization techniques: auto mated exposure control; mA and/or kV adjustment per patient size (includes targeted exams where dose is matched to clinical indication); or iterative reconstruction. DLP: 786.35 mGycm COMPARISON: None available. Lower thorax: Lung bases are clear. Moderate enlargement the heart. Small hiatal hernia. Liver: Normal size liver. Central bile ducts are dilated which could be physiologic. New intrahepatic duct dilatation since 01/07/2020. Common bile duct is dilated 13 mm. Gallbladder: Prior cholecystectomy. Pancreas: Pancreas is atrophied. Common bile duct is dilated at the pancreatic head. There is increas ed soft tissue extending through the ampulla of Vater which is contiguous with the common bile duct. Spleen: Normal. Adrenal glands: Normal. No mass. Right kidney: Normal size kidney with no mass or hydronephrosis. Left kidney: 4.2 cm cyst associated with the inferior pole the LEFT kidney. No hydronephrosis. Aorta: Moderate atherosclerosis. No aneurysm. No free fluid, intraperitoneal air or significant lymphadenopathy. GI tract: Normal appendix. No GI tract obstruction or diverticulosis. Abdominal wall: Negative. No hernia. Pelvis: Normal. Osseous structures: Biconcave burst fracture involving L4. Age indeterminate fracture. There is retro listhesis of the posterior superior endplate by 2 mm. Mild central and bilateral lateral recess steno sis at the L3-4 level. Mild RIGHT curvature of the lumbar spine. CT/CT abdomen pelvis con [id number] IMPRESSION: 1. Progression of intrahepatic and extra hepatic duct dilatation since 020. May be physiologic. Increased soft tissue projects into the duodenum near the ampulla of Vater. This may be a dilated ectatic common bile duct but soft t issue mass is not excluded. Recommend follow-up ultrasound evaluation of the co mmon bile duct. 2. No renal obstruction. 3. 4.2 cm LEFT renal cyst. 4. Mixed density burst fracture L4 with mild encroachment into the central can al and lateral recesses.
[2020-10-20] MEDS: iohexol 300 mg/mL 50 mL Btl PO (13:59)
== END 2020-10-20 13:33 | disposition home or self-care (01) ==
PROVIDERS: PCP Nurse Practitioner Family; Visit Provider Nurse Practitioner Family
DX: R10.30 Lower abdominal pain, unspecified (principal); R10.2 Pelvic and perineal pain; N39.0 Urinary tract infection, site not specified; Q61.01 Congenital single renal cyst; S32.041A Stable burst fracture of fourth lumbar vertebra, initial encounter for closed fracture; X58.XXXA Exposure to other specified factors, initial encounter
CPT/HCPCS: 74176; Q9967

== ENCOUNTER 2020-11-22 09:57 | Outpatient (CLI) | payer MEDICARE, SELFPAY ==
--- NOTE | 2020-11-22 10:07 | US_ITS ---
WS: [id number] Abdomen ultrasound, limited. HISTORY: Possible mass near the pancreatic head and common bile duct. COMPARISON: 10/20/[address] Pancreas is normal size. Common bile duct is normal on today's examination measuring 4 mm. No mass is noted at the pancreatic head or near the ampulla of Vater. Atherosclerosis in the aorta. US/US pancreas [id number] IMPRESSION: 1. No common bile duct dilatation or mass near the ampulla of Vater. 2. Noncontrast CT was performed on 10/20/2020. On that examination there were fin dings very concerning for possible mass near the ampulla. Although there is no obstruction involving the CBD today further evaluation is still recommended. Co nsider follow-up CT of the abdomen and pelvis with IV and oral contrast.
== END 2020-11-22 09:58 | disposition home or self-care (01) ==
LOC: RAD 10:01
PROVIDERS: PCP Nurse Practitioner Family; Visit Provider Nurse Practitioner Family
DX: K86.89 Other specified diseases of pancreas (principal)
CPT/HCPCS: 76705